=== PATIENT | female | born 1945 | race Hispanic/Latino ===

== ENCOUNTER 2016-08-23 06:13 | Emergency (ER) | payer MEDICARE ==
--- NOTE | 2016-08-23 07:59 | Emergency Department Report ---
HPI - General Chief Complaint: Extremity Injury, Lower Time Seen by Provider: 08/23/16 07:09 - HPI HPI: Chief complaint: Fall, right knee pain and low back pain HPI: Patient is 70-year-old female who was on her way to dialysis and tripped over her cane landing on her right knee. There was no syncope, no head injury and no other symptoms. Mode of arrival: EMS, Source: Patient Began: Prior to admission Duration: Pain continues Context: See above Quality: Sharp Severity: 8 out of 10 Improved with: Resting Worsened with: Walking and movement Associated signs and symptoms: No numbness or tingling or weakness ED Past Medical Hx - Past Medical History Hx Hypertension: Yes Hx Diabetes: Yes (controlled by diet per pt.) Hx GERD: Yes Hx Renal Disease: Yes Hx Arthritis: Yes Hx Seizures: Yes (last one on , on keppra, tonic clonic and complex partial) Hx COPD: Yes Hx Dementia: Yes Additional medical history: Paroxysmal atrial fibrillation - Surgical History Additional Surgical History: Unable to obtain, left upper extremity AV shunt, right chest permacath - Social History Smoking Status: Former Smoker Substance Use Type: None - Medications Home Medications: Home Medications Medication Instructions Recorded Confirmed Last Taken Type Aspirin [Aspirin BABY CHEW TAB] 81 mg PO QDAY 12/24/15 02/15/16 02/15/16 History AtorvaSTATin [Lipitor] 40 mg PO DAILY 12/24/15 02/18/16 02/17/16 History Carvedilol [Coreg] 25 mg PO BID 12/24/15 02/18/16 02/18/16 06:30 History Furosemide [Lasix TAB] 80 mg PO QDAY 12/24/15 02/18/16 02/17/16 History Pantoprazole Sodium 40 mg PO BID 12/24/15 02/18/16 02/17/16 History Paroxetine HCl [PARoxetine] 20 mg PO BID 12/24/15 02/18/16 02/17/16 History Vit B Cmplx 3/FA/Vit C/Biotin 1 each PO DAILY 12/24/15 02/18/16 02/17/16 History [[facility] Rx Tablet] levETIRAcetam [Keppra TAB] 1,500 mg PO BID 30 Days 12/26/15 02/18/16 02/18/16 06 :30 Rx Latanoprost 0.005% [Xalatan 0.005%] 1 drop OP QPM 02/15/16 02/18/16 02/17/16 History Levothyroxine [Synthroid] 88 mcg PO QAM 02/15/16 02/18/16 02/18/16 History Nitrofurantoin Macrocrystal 100 mg PO DAILY 02/15/16 02/15/16 Unknown History [Nitrofurantoin] Timolol [Betimol] 1 drop OU BID 02/15/16 02/18/16 02/18/16 History oxyCODONE /ACETAMINOPHEN [Percocet 1 tab PO Q6HR PRN 02/15/16 02/18/16 Unknown History 5/325] traMADol [Ultram 50 MG tab] 50 mg PO Q6HR PRN #10 tablet 08/23/16 Unknown Rx ED Review of Systems ROS: Stated complaint: RT KNEE/BACK PAIN/FALL Other details as noted in HPI ROS Constitutional: No fever ENT: No uri symptoms Cardiovascular: No chest pain Respiratory: No sob or cough GI: No nausea vomiting or diarrhea : No dysuria frequency or urgency, Skin: No rash Neuro: Walks with a cane Psych: No depression Cameron/lymph: No edema Physical Exam - Physical Exam Vital Signs: Vital Signs 08/23/16 08/23/16 06:27 07:04 Temperature 97.4 F L Pulse Rate 56 L Respiratory 18 Rate Blood Pressure 177/46 O2 Sat by Pulse 98 98 Oximetry Physical Exam: GENERAL: The patient is a well-developed well-nourished . HEENT: Normocephalic. Atraumatic. Extraocular motions are intact. Patient has moist mucous membranes. NECK: Normal inspection CHEST/LUNGS:. There is no respiratory distress noted. HEART/CARDIOVASCULAR: Pulses intact ABDOMEN: Abdomen is soft, nontender. There is no abdominal distention. SKIN: There is no rash. There is no edema. There is no diaphoresis. NEURO: The patient is awake, alert, and oriented. The patient is cooperative. The patient has no focal neurologic deficits. The patient has normal speech. MUSCULOSKELETAL: There is mild prepatellar tenderness with no deformity. There is no limitation range of motion. Mild lower lumbar tenderness without point tenderness. ED Course Vital Signs 08/23/16 08/23/16 06:27 07:04 Temperature 97.4 F L Pulse Rate 56 L Respiratory 18 Rate Blood Pressure 177/46 O2 Sat by Pulse 98 98 Oximetry ED Medical Decision Making - Radiology Data interpreted by me: X-ray of right knee shows DJD and lumbar spine shows degenerative disc disease with no acute fracture. Critical care attestation.: If time is entered above; I have spent that time in minutes in the direct care of this critically ill patient, excluding procedure time. ED Disposition Clinical Impression: Contusion of right knee Qualifiers: Encounter type: initial encounter Qualified Code(s): S80.01XA - Contusion of right knee, initial encounter Low back pain Qualifiers: Chronicity: acute Back pain laterality: midline Sciatica presence: without sciatica Qualified Code(s): M54.5 - Low back pain Disposition: DISCHARGED TO HOME OR SELFCARE Is pt being admited?: No Does the pt Need Aspirin: No Condition: Stable Instructions: Knee Pain (ED), Low Back Strain (ED), Contusion in Adults (ED) Additional Instructions: Take Tylenol for pain. Prescriptions: traMADol [Ultram 50 MG tab] 50 mg PO Q6HR PRN #10 tablet PRN Reason: Pain Referrals: PRIMARY CARE, [Primary Care Provider] - 3-5 Days Time of Disposition: 08:07
--- NOTE | 2016-08-23 10:15 | XRay Report ---
RIGHT KNEE THREE VIEWS: 08/23/16 06:13:00 CLINICAL: Fall and right knee pain. FINDINGS: Mild osteopenia. No fracture or dislocation. Moderate osteoarthritis involving both medial and lateral joint spaces and the patellofemoral joint. There is disc space narrowing, meniscal calcification or ossification and osteophytes. No joint effusion.Soft tissues are normal except for calcifications in the femoral artery. IMPRESSION: No apparent traumatic injury. Osteoarthritis.
[2016-08-23 10:17] VITALS: BP 155/84
--- NOTE | 2016-08-23 10:17 | XRay Report ---
LUMBAR SPINE THREE VIEWS: 08/23/16 06:13:00 CLINICAL: Fall and back pain. FINDINGS: Levoscoliosis and moderate multilevel degenerative disc disease. No fracture or subluxation. The pedicles are intact. Extensive calcification of the aorta. IMPRESSION: Scoliosis and extensive degenerative change.
== END 2016-08-23 10:18 | disposition home or self-care (01) ==
LOC: ED 06:13
DX: S80.01XA Contusion of right knee, initial encounter (principal); M54.5 Low back pain; I48.0 Paroxysmal atrial fibrillation; I10 Essential (primary) hypertension; E11.9 Type 2 diabetes mellitus without complications; J44.9 Chronic obstructive pulmonary disease, unspecified; F03.90 Unspecified dementia, unspecified severity, without behavioral disturbance, psychotic disturbance, mood disturbance, and anxiety; M19.90 Unspecified osteoarthritis, unspecified site; Z79.82 Long term (current) use of aspirin; Z87.891 Personal history of nicotine dependence; W18.30XA Fall on same level, unspecified, initial encounter; Y93.89 Activity, other specified; Y99.9 Unspecified external cause status; Y92.89 Other specified places as the place of occurrence of the external cause
CPT/HCPCS: 72100

== ENCOUNTER 2017-04-03 09:39 | Observation (INO) | payer MEDICARE ==
[2017-04-03] MEDS ORDERED: DULCOLAX PR PRN (10:58)
[2017-04-03] MEDS ORDERED: TYLENOL PO PRN (10:58)
[2017-04-03] MEDS ORDERED: ZOFRAN IM PRN (10:59)
[2017-04-03] MEDS ORDERED: NACL 0.9% 500 ML 500 ML IV NR (11:00)
--- NOTE | 2017-04-03 13:25 | Consultation ---
History of Present Illness - Reason for Consult Consult date: 04/03/17 end stage renal disease Requesting physician: HARMAN CHAVEZ - History of Present Illness Mrs. Casillas is a 71-year-old female with past medical history significant for diabetes, hypertension and end-stage renal disease on maintenance hemodialysis was admitted with severe anemia. Patient was noted to have a drop in her hemoglobin down in the sevens. Patient denies any nausea vomiting or diarrhea. No hematemesis or melena. Patient states that she did have a colonoscopy done about a year ago. Denies any other obvious bleeding. She undergoes hemodialysis at [facility] under our care on Tuesdays, and Saturdays. She did have her dialysis yesterday Past History Past Medical History: diabetes, dialysis, heart failure, hypertension Past Surgical History: Other (history of creation of AV access) Social history: no significant social history Family history: no significant family history Medications and Allergies Allergies Allergy/AdvReac Type Severity Reaction Status Date / Time benazepril HCl [From Lotrel] Allergy Swelling Verified 02/18/16 09:16 diphenhydramine HCl Allergy Swelling Verified 08/11/14 20:39 [From Benadryl] latex AdvReac Swelling Verified 02/18/16 09:15 Home Medications Medication Instructions Recorded Confirmed Last Taken Type Aspirin [Aspirin BABY CHEW TAB] 81 mg PO QDAY 12/24/15 03/03/17 02/15/16 History AtorvaSTATin [Lipitor] 40 mg PO DAILY 12/24/15 03/03/17 02/17/16 History Carvedilol [Coreg] 25 mg PO BID 12/24/15 03/03/17 02/18/16 06:30 History Furosemide [Lasix TAB] 40 mg PO QDAY 12/24/15 03/03/17 02/17/16 History Paroxetine HCl [PARoxetine] 20 mg PO BID 12/24/15 03/03/17 02/17/16 History Vit B Cmplx 3/FA/Vit C/Biotin 1 each PO DAILY 12/24/15 03/03/17 02/17/16 History [Chantell-Yana Rx Tablet] levETIRAcetam [Keppra TAB] 1,500 mg PO BID 30 Days 12/26/15 03/03/17 02/18/16 06 :30 Rx Latanoprost 0.005% [Xalatan 0.005%] 1 drop OP QPM 02/15/16 03/03/17 02/17/16 History Levothyroxine [Synthroid] 88 mcg PO QAM 02/15/16 03/03/17 02/18/16 History Timolol [Betimol] 1 drop OU BID 02/15/16 03/03/17 02/18/16 History Folic Acid/Vit B Comp W-C [Renal 1 cap PO QDAY capsule 03/04/17 Unknown Rx Caps] Furosemide [Lasix TAB] 40 mg PO DAILY tablet 03/04/17 Unknown Rx levETIRAcetam [Keppra TAB] 1,500 mg PO BID tablet 03/04/17 Unknown Rx oxyCODONE /ACETAMINOPHEN [Percocet 1 tab PO Q6HR PRN #14 tablet 03/04/17 Unknown Rx 5/325 mg] Active Meds: Active Medications Acetaminophen (Tylenol) 650 mg PO Q4H PRN PRN Reason: Pain MILD(1-3)/Fever >100.5/ARIAS Bisacodyl (Dulcolax) 10 mg [place] QDAY PRN PRN Reason: Constipation unrelieved by MOM Heparin Sodium (Porcine) (Heparin) 5,000 unit SUB-Q Q8HR MARIA G Sodium Chloride (Nacl 0.9% 500 Ml) 500 mls @ 0 mls/hr IV ONCE NR PRN Reason: As Directed Stop: 04/03/17 23:59 Ondansetron HCl (Zofran) 4 mg IM Q4H PRN PRN Reason: Nausea And Vomiting Review of Systems All systems: negative (negative except as noted above) Exam - General Appearance General appearance: well-developed, well-nourished, appears stated age EENT: PERRL, mucous membranes moist Neck: Present: neck supple, trachea midline. Absent: JVD/HJR, Masses Respiratory: Clear to Ascultation Heart: regular, normal heart rate Gastrointestinal: Present: normal, normoactive bowel sounds Integumentary: no rash, other (AV graft in her left upper arm. Good bruit and thrill) Assessment and Plan Impression * End-stage renal disease on maintenance hemodialysis * Severe anemia * Hypertension * Diabetes * Hyperparathyroidism Recommendations * Shall do anemia workup and also check stool for occult blood * Packed RBC transfusion may be given with dialysis tomorrow * Shall schedule her for dialysis tomorrow and keep her on Tuesdays, and Saturdays schedule as outpatient * Adjust diet and meds for ESRD state * No IV, BP of any puncture in her access arm * Binders and diet * Thank you very much for the consultation. Shall follow along with you
[2017-04-03] MEDS ORDERED: NACL 0.9% 100 ML IV PRN (13:26)
--- NOTE | 2017-04-03 13:29 | History and Physical Report ---
History of Present Illness Date of examination: 04/03/17 Date of admission: 04/03/17 10:15 Chief complaint: low H&H required transfusion History of present illness: 71-year-old female with a history of end-stage renal disease, right internal carotid artery stenosis, dementia, depression, dyslipidemia, COPD, hypothyroidism, glaucoma, osteoarthritis, diet-controlled diabetes mellitus type 2, end-stage renal disease on hemodialysis, hypertension, GERD, thrombocytopenia, paroxysmal atrial fibrillation not on anticoagulation because unexplained anemia with multiple colonoscopies and transfusions. Patient went to dialysis center and was told her hemoglobin is low and Dr. Dawn instructed her to come to [facility] for PRBC transfusion. Patient denies chest pain, shortness of breath, lightheadedness, dizziness, active bleeding. Past History Past Medical History: diabetes, dialysis, heart failure, hypertension Past Surgical History: Other (history of creation of AV access) Social history: no significant social history Family history: no significant family history Medications and Allergies Allergies Allergy/AdvReac Type Severity Reaction Status Date / Time benazepril HCl [From Lotrel] Allergy Swelling Verified 02/18/16 09:16 diphenhydramine HCl Allergy Swelling Verified 08/11/14 20:39 [From Benadryl] latex AdvReac Swelling Verified 02/18/16 09:15 Home Medications Medication Instructions Recorded Confirmed Last Taken Type Aspirin [Aspirin BABY CHEW TAB] 81 mg PO QDAY 12/24/15 04/03/17 04/03/17 05:30 History AtorvaSTATin [Lipitor] 40 mg PO DAILY 12/24/15 04/03/17 04/02/17 21:00 History Carvedilol [Coreg] 25 mg PO BID 12/24/15 04/03/17 04/03/17 05:30 History Furosemide [Lasix TAB] 40 mg PO QDAY 12/24/15 04/03/17 04/03/17 05:30 History Paroxetine HCl [PARoxetine] 20 mg PO BID 12/24/15 04/03/17 04/03/17 05:30 History Vit B Cmplx 3/FA/Vit C/Biotin 1 each PO DAILY 12/24/15 04/03/17 04/03/17 05:30 History [Ch[facility]ell-Yana Rx Tablet] levETIRAcetam [Keppra TAB] 1,500 mg PO BID 30 Days 12/26/15 04/03/17 04/03/17 05 :30 Rx Latanoprost 0.005% [Xalatan 0.005%] 1 drop OP QPM 02/15/16 04/03/17 04/02/17 21: 00 History Levothyroxine [Synthroid] 88 mcg PO QAM 02/15/16 04/03/17 04/03/17 04:05 History Timolol [Betimol] 1 drop OU BID 02/15/16 04/03/17 04/03/17 05:30 History Folic Acid/Vit B Comp W-C [Renal 1 cap PO QDAY capsule 03/04/17 04/03/17 05:30 Rx Caps] Furosemide [Lasix TAB] 40 mg PO DAILY tablet 03/04/17 04/03/17 04/03/17 05:30 Rx levETIRAcetam [Keppra TAB] 1,500 mg PO BID tablet 03/04/17 04/03/17 04/03/17 05 :30 Rx oxyCODONE /ACETAMINOPHEN [Percocet 1 tab PO Q6HR PRN #14 tablet 03/04/17 Unknown Rx 5/325 mg] Active Meds: Active Medications Acetaminophen (Tylenol) 650 mg PO Q4H PRN PRN Reason: Pain MILD(1-3)/Fever >100.5/ARIAS Bisacodyl (Dulcolax) 10 mg [place] QDAY PRN PRN Reason: Constipation unrelieved by MOM Epoetin Lyndon (Epogen) 20,000 unit IV SHIRAZ PRN PRN Reason: hemodialysis Heparin Sodium (Porcine) (Heparin) 5,000 unit SUB-Q Q8HR MARIA G Sodium Chloride (Nacl 0.9% 500 Ml) 500 mls @ 0 mls/hr IV ONCE NR PRN Reason: As Directed Stop: 04/03/17 23:59 Sodium Chloride (Nacl 0.9%) 100 mls @ 999 mls/hr IV SHIRAZ PRN PRN Reason: Hypotension Ondansetron HCl (Zofran) 4 mg IM Q4H PRN PRN Reason: Nausea And Vomiting Review of Systems Constitutional: no weight loss, no weight gain, no fever, no chills Ears, nose, mouth and throat: no ear discharge, no tinnitis, no decreased hearing, no nose pain, no nasal congestion, no nasal discharge Breasts: no change in shape, no swelling Cardiovascular: no chest pain, no orthopnea, no palpitations, no rapid/ irregular heart beat, no lightheadedness, no shortness of breath, no dyspnea on exertion Respiratory: no cough with sputum, no excessive sputum, no hemoptysis, no shortness of breath Gastrointestinal: no nausea, no vomiting, no diarrhea Genitourinary Female: no dysmenorrhea, no pelvic pain, no flank pain, no urinary frequency, no urgency, no post void dribbling Menstruation: no currently menstrual Musculoskeletal: no neck pain, no arm numbness/tingling, no shooting leg pain Integumentary: no pruritis, no redness, no wounds, no jaundice Neurological: no transient paralysis, no paralysis, no parathesias, no numbness , no tingling Psychiatric: no change in sleep habits, no sleep disturbances, no insomnia, no hypersomnia Endocrine: no heat intolerance, no polyphagia, no excessive thirst Hematologic/Lymphatic: no easy bruising, no easy bleeding Allergic/Immunologic: no urticaria, no allergic rhinitis, no wheezing Exam - Constitutional General appearance: Present: no acute distress - EENT Eyes: Present: PERRL ENT: hearing intact - Neck Neck: Present: supple - Respiratory Respiratory effort: normal Respiratory: bilateral: CTA - Cardiovascular Rhythm: regular Heart Sounds: Present: S1 & S2 - Extremities Extremities: no ischemia Peripheral Pulses: within normal limits - Abdominal General gastrointestinal: Present: soft, non-tender Female genitourinary: Present: deferred - Rectal Rectal Exam: deferred - Integumentary Integumentary: Present: clear, warm, dry - Musculoskeletal Musculoskeletal: strength equal bilaterally - Psychiatric Psychiatric: appropriate mood/affect - Neurologic Neurologic: CNII-XII intact - Allied Health Allied health notes reviewed: nursing Assessment and Plan Assessment and plan: 71-year-old female with a history of end-stage renal disease, right internal carotid artery stenosis, dementia, depression, dyslipidemia, COPD, hypothyroidism, glaucoma, osteoarthritis, diet-controlled diabetes mellitus type 2, end-stage renal disease on hemodialysis, hypertension, GERD, thrombocytopenia, paroxysmal atrial fibrillation not on anticoagulation because unexplained anemia with multiple colonoscopies and transfusions. Patient went to dialysis center and was told her hemoglobin is low and Dr. Dawn instructed her to come to [facility] for PRBC transfusion. Patient denies chest pain, shortness of breath, lightheadedness, dizziness, active bleeding. Chronic Anemia requiring transfusion Type and screen Transfuse 1 unit PRBC Close monitor H&H Stool occult blood pending Diabetes mellitus Accu-Chek before meals and after Sliding-scale insulin/NovoLog Diabetic education End stage renal disease on dialysis On hemodialysis Hypertension Continue on home antihypertensive medication IV hydralazine for SBP >160 Closely monitor blood pressure HX Paroxysmal atrial fibrillation Continue current treatment , rate controlled. Seizure disorder resume home anticonvulsant medication Dyslipidemia, Resume home antilipid medications Hypothyroidism Resume Synthroid DVT prophylaxis heparin Advance Directives: Yes VTE prophylaxis?: Chemical Contraindication Mechanical VTE Prophylaxis: Treatment Not Indicated Plan of care discussed with patient/family: Yes
[2017-04-03 13:55] LABS: Hematocrit 26.5 % (30.3-42.9); Hemoglobin 8.2 gm/dl (10.1-14.3); Mean Corpuscular HGB Conc 31 % (30-34); Mean Corpuscular Hemoglobin 32 pg (28-32); Mean Corpuscular Volume 104 fl (79-97); Red Blood Count 2.55 M/mm3 (3.65-5.03); Red Cell Distribution Width 17.5 % (13.2-15.2)
[2017-04-03 13:56] LABS: Reticulocyte % 2.74 % (0.78-2.58)
[2017-04-03] MEDS ORDERED: D50W (25GM) Syringe IV PRN (13:56)
[2017-04-03 14:01] LABS: Platelet Count 72 K/mm3 (140-440)
[2017-04-03 14:02] LABS: BUN/Creatinine Ratio 8.29; Calcium 8.5 mg/dL (8.4-10.2); Chloride 104.1 mmol/L (98-107); Potassium 4.5 mmol/L (3.6-5.0)
[2017-04-03] MEDS: HEPARIN SUB-Q SCH ×2 (14:22→21:31)
[2017-04-03 14:46] LABS: Blastocytes % (Manual) 0 %; Eosinophils % (Manual) 0 % (0.0-4.3)
[2017-04-03 14:47] LABS: Anisocytosis 2+; Diff Status Complete; Ovalocytes Few; Platelet Estimate Consistent w Auto
[2017-04-03] MEDS: XALATAN 0.005% OD SCH (19:00)
[2017-04-03] MEDS: NOVOLOG SUB-Q SCH ×2 (19:00→21:33)
[2017-04-03] MEDS: COREG PO SCH (21:31)
[2017-04-03] MEDS: KEPPRA PO SCH (21:32)
[2017-04-03] MEDS: PAXIL PO SCH (21:33)
[2017-04-03] MEDS: PERCOCET 5/325 PO PRN (21:38)
[2017-04-03] MEDS ORDERED: NON-FORMULARY (Levetiracetam [Keppra Tab] 1,500 MG) PO SCH (22:00)
[2017-04-03] MEDS ORDERED: TIMOLOL OU SCH (22:00)
[2017-04-04 04:28] LABS: Hematocrit 29.6 % (30.3-42.9); Hemoglobin 9.3 gm/dl (10.1-14.3); Mean Corpuscular HGB Conc 31 % (30-34); Mean Corpuscular Hemoglobin 32 pg (28-32); Mean Corpuscular Volume 103 fl (79-97); Red Blood Count 2.89 M/mm3 (3.65-5.03); Red Cell Distribution Width 18.8 % (13.2-15.2); White Blood Count 7.2 K/mm3 (4.5-11.0)
[2017-04-04 04:31] LABS: Platelet Count 82 K/mm3 (140-440)
[2017-04-04 05:25] LABS: Basophils % (Manual) 0 % (0.0-1.8); Blastocytes % (Manual) 0 %; Eosinophils % (Manual) 0 % (0.0-4.3)
[2017-04-04 05:26] LABS: Anisocytosis 1+; Diff Status Complete; Platelet Estimate Consistent w Auto; Polychromasia Rare
[2017-04-04] MEDS: LASIX PO SCH (06:07)
[2017-04-04] MEDS: SYNTHROID PO SCH (06:07)
[2017-04-04] MEDS: HEPARIN SUB-Q SCH ×3 (06:09→22:02)
[2017-04-04] MEDS: NOVOLOG SUB-Q SCH ×4 (08:00→22:02)
[2017-04-04] MEDS: PAXIL PO SCH ×2 (09:35→22:01)
[2017-04-04] MEDS: BABY ASPIRIN PO SCH (09:35)
[2017-04-04] MEDS: KEPPRA PO SCH ×2 (09:35→22:01)
[2017-04-04] MEDS: Renal Caps PO SCH (09:35)
[2017-04-04] MEDS: COREG PO SCH ×2 (09:36→22:01)
[2017-04-04] MEDS ORDERED: FUROSEMIDE 40 MG PO SCH (10:00)
[2017-04-04] MEDS ORDERED: [UNRECOGNIZED DRUG - OTHER] PO SCH (10:00)
[2017-04-04] MEDS ORDERED: BIOTIN PO SCH (10:00)
[2017-04-04] MEDS ORDERED: Renal Caps PO SCH (10:00)
[2017-04-04] MEDS ORDERED: VIT B CMPLX PO SCH (10:00)
--- NOTE | 2017-04-04 11:58 | Progress Note ---
Assessment and Plan Impression * End-stage renal disease on maintenance hemodialysis * Severe anemia * Hypertension * Diabetes * Hyperparathyroidism Recommendations * Status post packed RBC transfusion. Her hemoglobin is much better this morning. * No evidence of overt blood loss. * Patient is scheduled for hemodialysis today * Shall keep her on Tuesdays, and Saturdays schedule as outpatient * Adjust diet and meds for ESRD state * No IV, BP of any puncture in her access arm * Binders and diet * Patient will also need a GI follow-up * No objection to discharge from renal standpoint after dialysis Subjective Date of service: 04/04/17 Interval history: Patient is comfortable this morning. At packed RBC transfusion yesterday. Denies any hematemesis or melena or hematochezia. No nausea or vomiting. No shortness of breath Objective - Vital Signs Vital signs: Vital Signs - 12hr 04/04/17 04/04/17 06:05 09:36 Pulse Rate 73 65 Blood Pressure 151/59 Blood Pressure 161/63 [Right] - General Appearance General appearance: well-developed, well-nourished, appears stated age EENT: PERRL, mucous membranes moist Neck: no JVD, no thyromegaly, no carotid bruit, supple Respiratory: Present: Clear to Ascultation Cardiology: regular, normal heart rate, S1S2, no murmurs Gastrointestinal: normal, normoactive bowel sounds Integumentary: no rash, other (no edema. AV graft in the left upper arm. Good bruit and thrill) - Lab 04/04/17 03:41 04/03/17 13:31 Most recent lab results Calcium 8.5 mg/dL (8.4-10.2) 04/03/17 13:31
--- NOTE | 2017-04-04 13:44 | Progress Note ---
Assessment and Plan Assessment and plan: 71-year-old female with a history of end-stage renal disease, right internal carotid artery stenosis, dementia, depression, dyslipidemia, COPD, hypothyroidism, glaucoma, osteoarthritis, diet-controlled diabetes mellitus type 2, end-stage renal disease on hemodialysis, hypertension, GERD, thrombocytopenia, paroxysmal atrial fibrillation not on anticoagulation because unexplained anemia with multiple colonoscopies and transfusions. Patient went to dialysis center and was told her hemoglobin is low and Dr. Dawn instructed her to come to [facility] for PRBC transfusion. Patient denies chest pain, shortness of breath, lightheadedness, dizziness, active bleeding. Chronic Anemia requiring transfusion Type and screen Transfused 1 unit PRBC With good response Hx of multiple colonoscopy-Not sure if Capsule endoscopy has been done If AM h/h is stable will discharge and have follow up with GI outpatient. Outpatient capsule endoscopy Close monitor H&H Stool occult blood + Hemodynamically stable Diabetes mellitus Accu-Chek before meals and after Sliding-scale insulin/NovoLog Diabetic education End stage renal disease on dialysis On hemodialysis Hypertension Continue on home antihypertensive medication IV hydralazine for SBP >160 Closely monitor blood pressure Paroxysmal atrial fibrillation Continue current treatment, rate controlled. Seizure disorder resume home anticonvulsant medication Dyslipidemia, Resume home antilipid medications Hypothyroidism Resume Synthroid DVT prophylaxis heparin History Interval history: patient seen and examined in no acute distress Hospitalist Physical - Physical exam Narrative exam: VITAL SIGNS: Reviewed. GENERAL: The patient appeared well nourished and normally developed. Vital signs as documented. HEAD: No signs of head trauma. EYES: Pupils are equal. Extraocular motions intact. EARS: Hearing grossly intact. MOUTH: Oropharynx is normal. NECK: No adenopathy, no JVD. CHEST: Chest with clear breath sounds bilaterally. No wheezes, rales, or rhonchi. CARDIAC: Regular rate and rhythm. S1 and S2, without murmurs, gallops, or rubs. VASCULAR: No Edema. Peripheral pulses normal and equal in all extremities. ABDOMEN: Soft, without detectable tenderness. No sign of distention. No rebound or guarding, and no masses palpated. Bowel Sounds normal. MUSCULOSKELETAL: Good range of motion of all major joints. Extremities without clubbing, cyanosis or edema. NEUROLOGIC EXAM: Alert and oriented x 3. No focal sensory or strength deficits. Speech normal. Follows commands. PSYCHIATRIC: Mood normal. SKIN: No rash or lesions. - Constitutional Vitals: Temp Pulse Resp BP Pulse Ox 98.4 F 61 18 127/56 100 04/04/17 12:45 04/04/17 13:30 04/04/17 12:45 04/04/17 13:30 04/04/17 10:00 General appearance: Present: no acute distress, well-nourished - EENT Eyes: Present: PERRL Results - Labs CBC & Chem 7: 04/05/17 04:15 04/05/17 04:15 Labs: Laboratory Last Values WBC 7.2 K/mm3 (4.5-11.0) 04/04/17 03:41 RBC 2.89 M/mm3 (3.65-5.03) L 04/04/17 03:41 Hgb 9.3 gm/dl (10.1-14.3) L 04/04/17 03:41 Hct 29.6 % (30.3-42.9) L 04/04/17 03:41 MCV 103 fl (79-97) H 04/04/17 03:41 MCH 32 pg (28-32) 04/04/17 03:41 MCHC 31 % (30-34) 04/04/17 03:41 RDW 18.8 % (13.2-15.2) H 04/04/17 03:41 Plt Count 82 K/mm3 (140-440) L 04/04/17 03:41 [place] % (Auto) Skin Piler 04/04/17 03:41 Add Manual Diff Complete 04/04/17 03:41 Total Counted 100 04/04/17 03:41 Seg Neuts % (Manual) 69.0 % (40.0-70.0) 04/04/17 03:41 Band Neutrophils % 7.0 % 04/04/17 03:41 Lymphocytes % (Manual) 6.0 % (13.4-35.0) L 04/04/17 03:41 Reactive Lymphs % (Man) 0 % 04/04/17 03:41 Monocytes % (Manual) 18.0 % (0.0-7.3) H 04/04/17 03:41 Eosinophils % (Manual) 0 % (0.0-4.3) 04/04/17 03:41 Basophils % (Manual) 0 % (0.0-1.8) 04/04/17 03:41 Metamyelocytes % 0 % 04/04/17 03:41 Myelocytes % 0 % 04/04/17 03:41 Promyelocytes % 0 % 04/04/17 03:41 Blast Cells % 0 % 04/04/17 03:41 Nucleated RBC % Not Reportable 04/04/17 03:41 Seg Neutrophils # Man 5.0 K/mm3 (1.8-7.7) 04/04/17 03:41 Band Neutrophils # 0.5 K/mm3 04/04/17 03:41 Lymphocytes # (Manual) 0.4 K/mm3 (1.2-5.4) L 04/04/17 03:41 Abs React Lymphs (Man) 0.0 K/mm3 04/04/17 03:41 Monocytes # (Manual) 1.3 K/mm3 (0.0-0.8) H 04/04/17 03:41 Eosinophils # (Manual) 0.0 K/mm3 (0.0-0.4) 04/04/17 03:41 Basophils # (Manual) 0.0 K/mm3 (0.0-0.1) 04/04/17 03:41 Metamyelocytes # 0.0 K/mm3 04/04/17 03:41 Myelocytes # 0.0 K/mm3 04/04/17 03:41 Promyelocytes # 0.0 K/mm3 04/04/17 03:41 Blast Cells # 0.0 K/mm3 04/04/17 03:41 WBC Morphology Not Reportable 04/04/17 03:41 Hypersegmented Neuts Not Reportable 04/04/17 03:41 Hyposegmented Neuts Not Reportable 04/04/17 03:41 Hypogranular Neuts Not Reportable 04/04/17 03:41 Smudge Cells Not Reportable 04/04/17 03:41 Toxic Granulation Not Reportable 04/04/17 03:41 Toxic Vacuolation Not Reportable 04/04/17 03:41 Dohle Bodies Not Reportable 04/04/17 03:41 Pelger-Huet Anomaly Not Reportable 04/04/17 03:41 Juanpablo Rods Not Reportable 04/04/17 03:41 Platelet Estimate Consistent w auto 04/04/17 03:41 Clumped Platelets Not Reportable 04/04/17 03:41 Plt Clumps, EDTA Not Reportable 04/04/17 03:41 Large Platelets Not Reportable 04/04/17 03:41 Giant Platelets Not Reportable 04/04/17 03:41 Platelet Satelliting Not Reportable 04/04/17 03:41 Plt Morphology Comment Not Reportable 04/04/17 03:41 RBC Morphology Not Reportable 04/04/17 03:41 Dimorphic RBCs Not Reportable 04/04/17 03:41 Polychromasia Rare 04/04/17 03:41 Hypochromasia Not Reportable 04/04/17 03:41 Poikilocytosis Not Reportable 04/04/17 03:41 Anisocytosis 1+ 04/04/17 03:41 Microcytosis Not Reportable 04/04/17 03:41 Macrocytosis Not Reportable 04/04/17 03:41 Spherocytes Not Reportable 04/04/17 03:41 Pappenheimer Bodies Not Reportable 04/04/17 03:41 Sickle Cells Not Reportable 04/04/17 03:41 Target Cells Not Reportable 04/04/17 03:41 Tear Drop Cells Not Reportable 04/04/17 03:41 Ovalocytes Not Reportable 04/04/17 03:41 Helmet Cells Not Reportable 04/04/17 03:41 [place] Bodies Not Reportable 04/04/17 03:41 [place] Rings Not Reportable 04/04/17 03:41 [place] Cells Not Reportable 04/04/17 03:41 Bite Cells Not Reportable 04/04/17 03:41 Crenated Cell Not Reportable 04/04/17 03:41 Elliptocytes Not Reportable 04/04/17 03:41 Acanthocytes (Spur) Not Reportable 04/04/17 03:41 Rouleaux Not Reportable 04/04/17 03:41 Hemoglobin C Crystals Not Reportable 04/04/17 03:41 Schistocytes Not Reportable 04/04/17 03:41 Malaria parasites Not Reportable 04/04/17 03:41 Percent Retic 2.74 % (0.78-2.58) H 04/03/17 13:31 Chad Bodies Not Reportable 04/04/17 03:41 Hem Pathologist Commnt No 04/04/17 03:41 Sodium 147 mmol/L (137-145) H 04/03/17 13:31 Potassium 4.5 mmol/L (3.6-5.0) 04/03/17 13:31 Chloride 104.1 mmol/L (98-107) 04/03/17 13:31 Carbon Dioxide 25 mmol/L (22-30) 04/03/17 13:31 Anion Gap 22 mmol/L 04/03/17 13:31 BUN 39 mg/dL (7-17) H 04/03/17 13:31 Creatinine 4.7 mg/dL (0.7-1.2) H 04/03/17 13:31 Estimated GFR 9 ml/min 04/03/17 13:31 BUN/Creatinine Ratio 8.29 % 04/03/17 13:31 Glucose 117 mg/dL (65-100) H 04/03/17 13:31 POC Glucose 132 (70-105) H 04/04/17 11:45 Calcium 8.5 mg/dL (8.4-10.2) 04/03/17 13:31 Blood Type O POSITIVE 04/03/17 13:25 Antibody Screen Positive 04/03/17 13:25 Antibody Identification Anti-E 04/03/17 13:25 Crossmatch See Detail 04/03/17 13:25
[2017-04-04] MEDS ORDERED: NACL 0.9 (PRIMING MACHINE ONLY DIALYSIS) MC ONE (13:53)
[2017-04-04] MEDS: XALATAN 0.005% OD SCH (19:00)
[2017-04-05 05:00] LABS: Hemoglobin 8.5 gm/dl (10.1-14.3); Mean Corpuscular HGB Conc 31 % (30-34); Mean Corpuscular Hemoglobin 32 pg (28-32); Mean Corpuscular Volume 102 fl (79-97); Red Blood Count 2.65 M/mm3 (3.65-5.03); Red Cell Distribution Width 17.8 % (13.2-15.2); White Blood Count 5.9 K/mm3 (4.5-11.0)
[2017-04-05 05:05] LABS: Platelet Count 64 K/mm3 (140-440)
[2017-04-05 05:08] LABS: BUN/Creatinine Ratio 6.94; Calcium 7.9 mg/dL (8.4-10.2); Potassium 3.8 mmol/L (3.6-5.0)
[2017-04-05] MEDS: HEPARIN SUB-Q SCH ×3 (06:06→21:38)
[2017-04-05] MEDS: LASIX PO SCH (06:06)
[2017-04-05] MEDS: SYNTHROID PO SCH (06:06)
[2017-04-05] MEDS: NOVOLOG SUB-Q SCH ×4 (08:00→22:24)
[2017-04-05] MEDS: PERCOCET 5/325 PO PRN ×2 (09:10→20:35)
[2017-04-05] MEDS: Renal Caps PO SCH (09:11)
[2017-04-05] MEDS: PAXIL PO SCH ×2 (09:11→21:37)
[2017-04-05] MEDS: BABY ASPIRIN PO SCH (09:11)
[2017-04-05] MEDS: COREG PO SCH ×2 (09:12→21:37)
[2017-04-05] MEDS: KEPPRA PO SCH ×2 (10:04→21:37)
--- NOTE | 2017-04-05 12:14 | Discharge Summary ---
Providers - Providers Date of Admission: 04/03/17 10:15 Attending physician: SAURABH MOE MD 04/03/17 10:16 Consult to Physician [CONS] Routine Consulting Provider: BETH DAWN Reason For Exam: CHRONIC KIDNEY DISEASE Place consult to:: DR. MILLAN Notified:: Phone number called:: [phone] Was contact made?: Yes If yes, spoke with:: PAPO Time called:: 12:13 Comment:: JONATHON Primary care physician: [facility] Hospitalization Reason for admission: anemia Hospital course: 71-year-old female with a history of end-stage renal disease, right internal carotid artery stenosis, dementia, depression, dyslipidemia, COPD, hypothyroidism, glaucoma, osteoarthritis, diet-controlled diabetes mellitus type 2, end-stage renal disease on hemodialysis, hypertension, GERD, thrombocytopenia, paroxysmal atrial fibrillation not on anticoagulation because unexplained anemia with multiple colonoscopies and transfusions. Patient went to dialysis center and was told her hemoglobin is low and Dr. Dawn instructed her to come to [facility] for PRBC transfusion. Patient denies chest pain, shortness of breath, lightheadedness, dizziness, active bleeding. Patient had an episode of afib with rvr which self corrected. EKG revealed Sinus rhthm with PAC at 69. 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 Acute on Chronic Anemia requiring transfusion Type and screen Transfused 1 unit PRBC With good response Hx of multiple colonoscopy-Not sure if Capsule endoscopy has been done Equalization of Hgb noted. Per nephrology Hgb was 7.7 prior to admission Outpatient capsule endoscopy Recommended Patient has had multiple endoscopies and colonoscopies. Hemodynamically stable Diabetes mellitus Accu-Chek before meals and after Sliding-scale insulin/NovoLog Diabetic education End stage renal disease on dialysis On hemodialysis Hypertension Continue on home antihypertensive medication IV hydralazine for SBP >160 Closely monitored blood pressure Paroxysmal atrial fibrillation Continue current treatment, rate controlled. Seizure disorder resume home anticonvulsant medication Dyslipidemia, Resume home antilipid medications Hypothyroidism Resumed Synthroid Disposition: TO HOME OR SELFCARE Time spent for discharge: 35 mins Core Measure Documentation - Palliative Care Palliative Care/ Comfort Measures: Not Applicable - Core Measures Any of the following diagnoses?: none - VTE Discharge Requirements Deep Vein Thrombosis/Pulmonary Embolism Present on Admission: No Exam - Physical Exam Narrative exam: VITAL SIGNS: Reviewed. GENERAL: The patient appeared well nourished and normally developed. Vital signs as documented. HEAD: No signs of head trauma. EYES: Pupils are equal. Extraocular motions intact. EARS: Hearing grossly intact. MOUTH: Oropharynx is normal. NECK: No adenopathy, no JVD. CHEST: Chest with clear breath sounds bilaterally. No wheezes, rales, or rhonchi. CARDIAC: Regular rate and rhythm. S1 and S2, without murmurs, gallops, or rubs. VASCULAR: No Edema. Peripheral pulses normal and equal in all extremities. ABDOMEN: Soft, without detectable tenderness. No sign of distention. No rebound or guarding, and no masses palpated. Bowel Sounds normal. MUSCULOSKELETAL: Good range of motion of all major joints. Extremities without clubbing, cyanosis or edema. NEUROLOGIC EXAM: Alert and oriented x 3. No focal sensory or strength deficits. Speech normal. Follows commands. PSYCHIATRIC: Mood normal. SKIN: No rash or lesions. - Constitutional Vitals: Temp Pulse Resp BP Pulse Ox 98.8 F 117 H 20 136/68 100 04/05/17 10:00 04/05/17 10:00 04/05/17 10:00 04/05/17 10:04/05/17 10:00 Plan Activity: advance as tolerated, fall precautions Diet: diabetic, renal Special Instructions: record daily BP diary Additional Instructions: follow cardiology for Atrial firbiallation Follow up with: KNACHAN OROSCO MD [Staff Physician] - 7 Days BETH DAWN MD [Staff Physician] - 7 Days MENA NEGRO MD [Primary Care Provider] - 7 Days STACEY SHORT MD [Staff Physician] - 7 Days
--- NOTE | 2017-04-05 12:25 | Progress Note ---
Assessment and Plan Impression * End-stage renal disease on maintenance hemodialysis * Severe anemia * Hypertension * Diabetes * Hyperparathyroidism Recommendations * Status post packed RBC transfusion. . * No evidence of overt blood loss. * Uneventful hemodialysis yesterday * Shall keep her on Tuesdays, and Saturdays schedule as outpatient * Adjust diet and meds for ESRD state * No IV, BP of any puncture in her access arm * Binders and diet * Her EKG today showed sinus rhythm with PACs * Patient has had GI workup in the past . Patient will also need a GI follow-up for capsule endoscopy as outpatient * No objection to discharge from renal standpoint after dialysis Subjective Date of service: 04/05/17 Interval history: Patient is awake and alert. Comfortable at this time. Denies any shortness of breath Objective - Vital Signs Vital signs: Vital Signs - 12hr 04/05/17 04/05/17 04/05/17 09:05 09:12 10:00 Temperature 98.8 F Pulse Rate 100 H 117 H Respiratory 20 Rate Blood Pressure 138/68 Blood Pressure 136/68 [Right] O2 Sat by Pulse 100 100 Oximetry - General Appearance General appearance: well-developed, well-nourished, appears stated age EENT: PERRL, mucous membranes moist Neck: no JVD, no thyromegaly, no carotid bruit, supple Respiratory: Present: Clear to Ascultation Cardiology: irregularly irregular Gastrointestinal: normal, normoactive bowel sounds Integumentary: no rash, other (no edema. AV graft in her left arm. Good bruit and thrill) - Lab 04/05/17 04:15 04/05/17 04:15 Most recent lab results Calcium 7.9 mg/dL (8.4-10.2) L 04/05/17 04:15
--- NOTE | 2017-04-05 14:10 | Progress Note ---
Assessment and Plan Assessment and plan: 71-year-old female with a history of end-stage renal disease, right internal carotid artery stenosis, dementia, depression, dyslipidemia, COPD, hypothyroidism, glaucoma, osteoarthritis, diet-controlled diabetes mellitus type 2, end-stage renal disease on hemodialysis, hypertension, GERD, thrombocytopenia, paroxysmal atrial fibrillation not on anticoagulation because unexplained anemia with multiple colonoscopies and transfusions. Patient went to dialysis center and was told her hemoglobin is low and Dr. Dawn instructed her to come to [facility] for PRBC transfusion. Patient denies chest pain, shortness of breath, lightheadedness, dizziness, active bleeding. Hypoxic respiratory failure * We'll recheck a hemoglobin and hematocrit to ensure this is not based on demand * We'll obtain an ABG * We'll plan for home O2 * We'll hold patient up tomorrow to monitor for improvement. Chronic Anemia requiring transfusion Type and screen Transfused 1 unit PRBC With good response Hx of multiple colonoscopy-Not sure if Capsule endoscopy has been done If AM h/h is stable will discharge and have follow up with GI outpatient. Outpatient capsule endoscopy Close monitor H&H Stool occult blood + Hemodynamically stable Diabetes mellitus Accu-Chek before meals and after Sliding-scale insulin/NovoLog Diabetic education End stage renal disease on dialysis On hemodialysis Hypertension Continue on home antihypertensive medication IV hydralazine for SBP >160 Closely monitor blood pressure Paroxysmal atrial fibrillation Continue current treatment, rate controlled. Seizure disorder resume home anticonvulsant medication Dyslipidemia, Resume home antilipid medications Hypothyroidism Resume Synthroid DVT prophylaxis heparin History Interval history: Patient reexamined prior to discharge she reported shortness of breath which she states is chronic but this appeared worse than before. Oxygen evaluation showed a saturation of 88% on ambulation. Hospitalist Physical - Physical exam Narrative exam: VITAL SIGNS: Reviewed. GENERAL: The patient appeared well nourished and normally developed. Vital signs as documented. HEAD: No signs of head trauma. EYES: Pupils are equal. Extraocular motions intact. EARS: Hearing grossly intact. MOUTH: Oropharynx is normal. NECK: No adenopathy, no JVD. CHEST: Chest with clear breath sounds bilaterally. No wheezes, rales, or rhonchi. CARDIAC: Regular rate and rhythm. S1 and S2, without murmurs, gallops, or rubs. VASCULAR: No Edema. Peripheral pulses normal and equal in all extremities. ABDOMEN: Soft, without detectable tenderness. No sign of distention. No rebound or guarding, and no masses palpated. Bowel Sounds normal. MUSCULOSKELETAL: Good range of motion of all major joints. Extremities without clubbing, cyanosis or edema. NEUROLOGIC EXAM: Alert and oriented x 3. No focal sensory or strength deficits. Speech normal. Follows commands. PSYCHIATRIC: Mood normal. SKIN: No rash or lesions. - Constitutional Vitals: Temp Pulse Resp BP Pulse Ox 98.8 F 117 H 20 136/68 100 04/05/17 10:00 04/05/17 10:00 04/05/17 10:00 04/05/17 10:00 04/05/17 10:00 General appearance: Present: no acute distress, well-nourished Results - Labs CBC & Chem 7: 04/05/17 04:15 04/05/17 04:15 Labs: Laboratory Last Values WBC 5.9 K/mm3 (4.5-11.0) 04/05/17 04:15 RBC 2.65 M/mm3 (3.65-5.03) L 04/05/17 04:15 Hgb 8.5 gm/dl (10.1-14.3) L 04/05/17 04:15 Hct 27.0 % (30.3-42.9) L 04/05/17 04:15 MCV 102 fl (79-97) H 04/05/17 04:15 MCH 32 pg (28-32) 04/05/17 04:15 MCHC 31 % (30-34) 04/05/17 04:15 RDW 17.8 % (13.2-15.2) H 04/05/17 04:15 Plt Count 64 K/mm3 (140-440) L 04/05/17 04:15 [place] % (Auto) Firearms Sales Associate 04/04/17 03:41 Add Manual Diff Complete 04/04/17 03:41 Total Counted 100 04/04/17 03:41 Seg Neuts % (Manual) 69.0 % (40.0-70.0) 04/04/17 03:41 Band Neutrophils % 7.0 % 04/04/17 03:41 Lymphocytes % (Manual) 6.0 % (13.4-35.0) L 04/04/17 03:41 Reactive Lymphs % (Man) 0 % 04/04/17 03:41 Monocytes % (Manual) 18.0 % (0.0-7.3) H 04/04/17 03:41 Eosinophils % (Manual) 0 % (0.0-4.3) 04/04/17 03:41 Basophils % (Manual) 0 % (0.0-1.8) 04/04/17 03:41 Metamyelocytes % 0 % 04/04/17 03:41 Myelocytes % 0 % 04/04/17 03:41 Promyelocytes % 0 % 04/04/17 03:41 Blast Cells % 0 % 04/04/17 03:41 Nucleated RBC % Not Reportable 04/04/17 03:41 Seg Neutrophils # Man 5.0 K/mm3 (1.8-7.7) 04/04/17 03:41 Band Neutrophils # 0.5 K/mm3 04/04/17 03:41 Lymphocytes # (Manual) 0.4 K/mm3 (1.2-5.4) L 04/04/17 03:41 Abs React Lymphs (Man) 0.0 K/mm3 04/04/17 03:41 Monocytes # (Manual) 1.3 K/mm3 (0.0-0.8) H 04/04/17 03:41 Eosinophils # (Manual) 0.0 K/mm3 (0.0-0.4) 04/04/17 03:41 Basophils # (Manual) 0.0 K/mm3 (0.0-0.1) 04/04/17 03:41 Metamyelocytes # 0.0 K/mm3 04/04/17 03:41 Myelocytes # 0.0 K/mm3 04/04/17 03:41 Promyelocytes # 0.0 K/mm3 04/04/17 03:41 Blast Cells # 0.0 K/mm3 04/04/17 03:41 WBC Morphology Not Reportable 04/04/17 03:41 Hypersegmented Neuts Not Reportable 04/04/17 03:41 Hyposegmented Neuts Not Reportable 04/04/17 03:41 Hypogranular Neuts Not Reportable 04/04/17 03:41 Smudge Cells Not Reportable 04/04/17 03:41 Toxic Granulation Not Reportable 04/04/17 03:41 Toxic Vacuolation Not Reportable 04/04/17 03:41 Dohle Bodies Not Reportable 04/04/17 03:41 Pelger-Huet Anomaly Not Reportable 04/04/17 03:41 Juanpablo Rods Not Reportable 04/04/17 03:41 Platelet Estimate Consistent w auto 04/04/17 03:41 Clumped Platelets Not Reportable 04/04/17 03:41 Plt Clumps, EDTA Not Reportable 04/04/17 03:41 Large Platelets Not Reportable 04/04/17 03:41 Giant Platelets Not Reportable 04/04/17 03:41 Platelet Satelliting Not Reportable 04/04/17 03:41 Plt Morphology Comment Not Reportable 04/04/17 03:41 RBC Morphology Not Reportable 04/04/17 03:41 Dimorphic RBCs Not Reportable 04/04/17 03:41 Polychromasia Rare 04/04/17 03:41 Hypochromasia Not Reportable 04/04/17 03:41 Poikilocytosis Not Reportable 04/04/17 03:41 Anisocytosis 1+ 04/04/17 03:41 Microcytosis Not Reportable 04/04/17 03:41 Macrocytosis Not Reportable 04/04/17 03:41 Spherocytes Not Reportable 04/04/17 03:41 Pappenheimer Bodies Not Reportable 04/04/17 03:41 Sickle Cells Not Reportable 04/04/17 03:41 Target Cells Not Reportable 04/04/17 03:41 Tear Drop Cells Not Reportable 04/04/17 03:41 Ovalocytes Not Reportable 04/04/17 03:41 Helmet Cells Not Reportable 04/04/17 03:41 [place] Bodies Not Reportable 04/04/17 03:41 [place] Rings Not Reportable 04/04/17 03:41 [place] Cells Not Reportable 04/04/17 03:41 Bite Cells Not Reportable 04/04/17 03:41 Crenated Cell Not Reportable 04/04/17 03:41 Elliptocytes Not Reportable 04/04/17 03:41 Acanthocytes (Spur) Not Reportable 04/04/17 03:41 Rouleaux Not Reportable 04/04/17 03:41 Hemoglobin C Crystals Not Reportable 04/04/17 03:41 Schistocytes Not Reportable 04/04/17 03:41 Malaria parasites Not Reportable 04/04/17 03:41 Percent Retic 2.74 % (0.78-2.58) H 04/03/17 13:31 Chad Bodies Not Reportable 04/04/17 03:41 Hem Pathologist Commnt No 04/04/17 03:41 Sodium 143 mmol/L (137-145) 04/05/17 04:15 Potassium 3.8 mmol/L (3.6-5.0) 04/05/17 04:15 Chloride 101.0 mmol/L (98-107) 04/05/17 04:15 Carbon Dioxide 29 mmol/L (22-30) 04/05/17 04:15 Anion Gap 17 mmol/L 04/05/17 04:15 BUN 25 mg/dL (7-17) H 04/05/17 04:15 Creatinine 3.6 mg/dL (0.7-1.2) H 04/05/17 04:15 Estimated GFR 12 ml/min 04/05/17 04:15 BUN/Creatinine Ratio 6.94 % 04/05/17 04:15 Glucose 122 mg/dL (65-100) H 04/05/17 04:15 POC Glucose 176 (70-105) H 04/05/17 11:32 Calcium 7.9 mg/dL (8.4-10.2) L 04/05/17 04:15 Blood Type O POSITIVE 04/03/17 13:25 Antibody Screen Positive 04/03/17 13:25 Antibody Identification Anti-E 04/03/17 13:25 Crossmatch See Detail 04/03/17 13:25
[2017-04-05 15:19] LABS: ISTAT Base Excess 6; ISTAT PCO2 63.1 (35-45); ISTAT PH 7.313 (7.35-7.45); ISTAT PO2 171 (80-105); ISTAT SO2 99; ISTAT TCO2 34
[2017-04-05 17:01] LABS: Hematocrit 30.7 % (30.3-42.9); Hemoglobin 9.4 gm/dl (10.1-14.3)
[2017-04-05] MEDS: XALATAN 0.005% OD SCH (18:00)
--- NOTE | 2017-04-06 02:40 | Admit Criteria Form ---
Admission Criteria Documentation: ANEMIA, IRON DEFICIENCY OR UNSPECIFIED Clinical Indications for Inpatient Care (Place 'X' for any and all applicable criteria): Admission is indicated for ANY ONE of the following(1)(2)(3)(4)(5)(6)(7): [X] I. Inpatient admission required rather than observation care (Also use Anemia, Iron Deficiency or Unspecified: Observation Care guideline as appropriate) because of ANY ONE of the following: [] a) Hemodynamic instability that is severe or persistent [] b) Active bleeding that cannot be rapidly controlled [] c) CVS symptoms (i.e., dyspnea, chest pain, heart failure) that are severe or persistent [] d) Neurologic symptoms (i.e., cognitive impairment, recurrent syncope or near syncope) that are severe or persistent [] e) Cardiac arrhythmias of immediate concern [] f) Acute peripheral ischemia (e.g., pulseless, cool, mottled, or cyanotic extremity) [] g) High-risk low platelet count [] h) Acute renal failure [] i) Ongoing transfusion for blood loss (greater than 2 units) [] j) IV fluid to replace significant ongoing (eg, >24 hours) losses (> 3 L/m2 per day) [] k) Pulmonary artery catheter monitoring [] l) Supplemental oxygen or respiratory treatments for over 24 hours that are performable only in acute inpatient setting [] m) Immediate inpatient surgery [X] n) Other condition, treatment or monitoring requiring inpatient admission [] II Active massive hemorrhage [] III. Active hemolysis with rapidly progressive anemia [A](6) Extended stay beyond goal length of stay may be needed for (17)(18) []a) Diagnosed cause of anemia requiring longer hospitalization (eg, active GI bleeding, immune hemolysis requiring electrophoresis, complications of malignancy requiring acute care []b) Continued emergent anemia indicators (23) []c) Transfusion reactions []d) Associated leukopenia or thrombocytopenia needing inpatient care []e) Active comorbidities (eg, renal failure, heart failure) The original [facility] Care Guidelines content created by [facility] Care Guidelines has been revised. The portions of the content which have been revised are identified through the use of italic text or in bold. [facility] Guidelines has neither reviewed nor approved the modified material. All other unmodified content is copyright [facility] Care Guidelines. Please see references footnoted in the original [facility] edition 2016 Admission Criteria Met: Yes
[2017-04-06 05:05] LABS: Hematocrit 23.8 % (30.3-42.9); Hemoglobin 7.7 gm/dl (10.1-14.3); Mean Corpuscular HGB Conc 32 % (30-34); Mean Corpuscular Hemoglobin 32 pg (28-32); Mean Corpuscular Volume 100 fl (79-97); Red Blood Count 2.38 M/mm3 (3.65-5.03); Red Cell Distribution Width 16.9 % (13.2-15.2); White Blood Count 3.9 K/mm3 (4.5-11.0)
[2017-04-06 05:13] LABS: Platelet Count 57 K/mm3 (140-440)
[2017-04-06] MEDS: SYNTHROID PO SCH (05:57)
[2017-04-06] MEDS: LASIX PO SCH (05:59)
[2017-04-06] MEDS: HEPARIN SUB-Q SCH (05:59)
[2017-04-06] MEDS: NOVOLOG SUB-Q SCH ×3 (08:00→17:00)
[2017-04-06] MEDS ORDERED: NACL 0.9% 500 ML 500 ML IV ONE ×2 (08:30→10:59)
[2017-04-06] MEDS: APRESOLINE IV PRN ×2 (08:51→11:44)
--- NOTE | 2017-04-06 10:00 | Progress Note ---
Assessment and Plan Impression * End-stage renal disease on maintenance hemodialysis * Severe anemia * Hypertension * Diabetes * Hyperparathyroidism Recommendations * Status post packed RBC transfusion. . * No evidence of overt blood loss. * hd today for sob, will give 2 units prbcs * HD Tuesdays, and Saturdays schedule as outpatient as well * Adjust diet and meds for ESRD state * No IV, BP of any puncture in her access arm * Binders and diet * Her EKG today showed sinus rhythm with PACs * Patient has had GI workup in the past . Patient will also need a GI follow-up for capsule endoscopy as outpatient * ok to khurram from renal standpoint Subjective Date of service: 04/06/17 Principal diagnosis: esrd Interval history: resting well in bed today, but complains of sob Objective - Exam Narrative Exam: General appearance: well-developed, well-nourished, appears stated age EENT: PERRL, mucous membranes moist Neck: no JVD, no thyromegaly, no carotid bruit, supple Respiratory: Present: Clear to Ascultation Cardiology: irregularly irregular Gastrointestinal: normal, normoactive bowel sounds Integumentary: no rash, other (no edema. AV graft in her left arm. Good bruit and thrill) - Vital Signs Vital signs: Vital Signs - 12hr 04/05/17 04/06/17 22:00 08:51 Temperature 98.8 F Pulse Rate 86 82 Respiratory 18 Rate Blood Pressure 174/55 Blood Pressure 172/40 [Right] O2 Sat by Pulse 100 Oximetry - Lab 04/06/17 03:41 04/05/17 04:15 Most recent lab results Calcium 7.9 mg/dL (8.4-10.2) L 04/05/17 04:15
[2017-04-06] MEDS: COREG PO SCH ×2 (10:11→22:00)
[2017-04-06] MEDS ORDERED: NACL 0.9% 100 ML IV PRN (10:57)
[2017-04-06] MEDS: PAXIL PO SCH (11:00)
[2017-04-06] MEDS: KEPPRA PO SCH (11:00)
[2017-04-06] MEDS: PROTONIX PO SCH (11:00)
[2017-04-06] MEDS: Renal Caps PO SCH (11:00)
[2017-04-06] MEDS ORDERED: D5/0.45NS 1,000 ML IV SCH (12:00)
--- NOTE | 2017-04-06 12:15 | Gastroenterology Consultation ---
History of Present Illness - Reason for Consult Consult date: 04/06/17 anemia Requesting physician: SAURABH MOE - History of Present Illness Patient is a 71 y/o female who was sent to [facility] from dialysis center due to low hemoglobin. PMH significant for ESRD on HD, right internal carotid artery stenosis, dementia, depression, dyslipidemia, COPD, hypothyroidism, glaucoma, osteoarthritis, diet-controlled diabetes mellitus type 2, end-stage renal disease on hemodialysis, hypertension, GERD, thrombocytopenia, paroxysmal atrial fibrillation not on anticoagulation. 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 This morning pt in bed, respirations slightly labored due to recent transfer from the chair. Pt currently on O2 via NC. No active signs of bleeding. Denies fever , wt loss, abd pain, N/V, hematemesis, melena, diarrhea, constipation, or hematochezia. Past History Past Medical History: atrial fib, anemia, COPD, diabetes, dialysis, ESRD, GERD, heart failure, hypertension, hypothyroidism, other (dementia, coronary artery stenosis, dyslipidemia, glaucoma, osteoarthritis, thrombocytepenia ) Past Surgical History: Other (history of creation of AV access) Social history: no significant social history Family history: no significant family history Medications and Allergies Allergies Allergy/AdvReac Type Severity Reaction Status Date / Time benazepril HCl [From Lotrel] Allergy Swelling Verified 02/18/16 09:16 diphenhydramine HCl Allergy Swelling Verified 08/11/14 20:39 [From Benadryl] latex AdvReac Swelling Verified 02/18/16 09:15 Home Medications Medication Instructions Recorded Confirmed Last Taken Type Aspirin [Aspirin BABY CHEW TAB] 81 mg PO QDAY 12/24/15 04/03/17 04/03/17 05:30 History AtorvaSTATin [Lipitor] 40 mg PO DAILY 12/24/15 04/03/17 04/02/17 21:00 History Carvedilol [Coreg] 25 mg PO BID 12/24/15 04/03/17 04/03/17 05:30 History Paroxetine HCl [PARoxetine] 20 mg PO BID 12/24/15 04/03/17 04/03/17 05:30 History Vit B Cmplx 3/FA/Vit C/Biotin 1 each PO DAILY 12/24/15 04/03/17 04/03/17 05:30 History [Chantell-Yana Rx Tablet] levETIRAcetam [Keppra TAB] 1,500 mg PO BID 30 Days 12/26/15 04/03/17 04/03/17 05 :30 Rx Latanoprost 0.005% [Xalatan 0.005%] 1 drop OP QPM 02/15/16 04/03/17 04/02/17 21: 00 History Levothyroxine [Synthroid] 88 mcg PO QAM 02/15/16 04/03/17 04/03/17 04:05 History Timolol [Betimol] 1 drop OU BID 02/15/16 04/03/17 04/03/17 05:30 History Folic Acid/Vit B Comp W-C [Renal 1 cap PO QDAY capsule 03/04/17 04/03/17 05:30 Rx Caps] Furosemide [Lasix TAB] 40 mg PO DAILY tablet 03/04/17 04/03/17 04/03/17 05:30 Rx levETIRAcetam [Keppra TAB] 1,500 mg PO BID tablet 03/04/17 04/03/17 04/03/17 05 :30 Rx oxyCODONE /ACETAMINOPHEN [Percocet 1 tab PO Q6HR PRN #12 tablet 04/05/17 Unknown Rx 5/325 mg] Pantoprazole [Protonix TAB] 40 mg PO QDAY #30 tablet 04/06/17 Unknown Rx Active Meds: Active Medications Acetaminophen (Tylenol) 650 mg PO Q4H PRN PRN Reason: Pain MILD(1-3)/Fever >100.5/ARIAS Atorvastatin Calcium (Lipitor) 40 mg PO QHS [facility] Last Admin: 04/05/17 21:37 Dose: 40 mg Bisacodyl (Dulcolax) 10 mg MT QDAY PRN PRN Reason: Constipation unrelieved by MOM Carvedilol (Coreg) 25 mg PO BID [facility] Last Admin: 04/06/17 10:11 Dose: 25 mg Dextrose (D50w (25gm) Syringe) 50 ml IV PRN PRN PRN Reason: Hypoglycemia Epoetin Lyndon (Epogen) 20,000 unit IV SHIRAZ PRN PRN Reason: hemodialysis Last Admin: 04/04/17 15:00 Dose: 20,000 unit Furosemide (Lasix) 40 mg PO DAILY@0600 [facility] Last Admin: 04/06/17 05:59 Dose: 40 mg Hydralazine HCl (Apresoline) 10 mg IV Q4HR PRN PRN Reason: Hypertension Last Admin: 04/06/17 11:44 Dose: 10 mg Sodium Chloride (Nacl 0.9%) 100 mls @ 999 mls/hr IV SHIRAZ PRN PRN Reason: Hypotension Sodium Chloride (Nacl 0.9%) 100 mls @ 999 mls/hr IV SHIRAZ PRN PRN Reason: Hypotension Dextrose/Sodium Chloride (D5/0.45ns) 1,000 mls @ 50 mls/hr IV DIRECT [facility] Insulin Aspart (Novolog) 0 units SUB-Q AC [facility] PRN Reason: Protocol Last Admin: 04/06/17 11:51 Dose: Not Given Insulin Aspart (Novolog) 0 units SUB-Q QHS [facility] PRN Reason: Protocol Last Admin: 04/05/17 22:24 Dose: 1 units Latanoprost (Xalatan 0.005%) 1 drops OD QPM [facility] Last Admin: 04/05/17 18:00 Dose: Not Given Levetiracetam (Keppra) 1,500 mg PO BID [facility] Last Admin: 04/05/17 21:37 Dose: 1,500 mg Levothyroxine Sodium (Synthroid) 88 mcg PO DAILY@0600 [facility] Last Admin: 04/06/17 05:57 Dose: 88 mcg Multivit/Ca Carb/B Cmplx/FA/Prenat (Renal Caps) 1 cap PO QDAY [facility] Last Admin: 04/05/17 09:11 Dose: 1 cap Ondansetron HCl (Zofran) 4 mg IM Q4H PRN PRN Reason: Nausea And Vomiting Oxycodone/Acetaminophen (Percocet 5/325) 1 tab PO Q6HR PRN PRN Reason: Pain, Moderate (4-6) Last Admin: 04/05/17 20:35 Dose: 1 tab Pantoprazole Sodium (Protonix) 40 mg PO QDAY [facility] Paroxetine HCl (Paxil) 20 mg PO BID [facility] Last Admin: 04/05/17 21:37 Dose: 20 mg Review of Systems - Review of Systems All systems: negative Respiratory: shortness of breath Gastrointestinal: no abdominal pain, no nausea, no vomiting, no hematemesis, no coffee ground emesis, no BRBPR, no melena, no hematochezia Exam - Constitutional Vital Signs: Temp Pulse Resp BP Pulse Ox 99.8 F H 80 22 170/60 97 04/06/17 10:00 04/06/17 11:44 04/06/17 10:00 04/06/17 11:44 04/06/17 10:45 General appearance: mild distress (SOB due to recent transfer from bedside chair to bed) - EENT Eyes: PERRL, EOM intact ENT: hearing intact - Neck Neck: supple, normal ROM - Respiratory Respiratory: bilateral: diminished - Cardiovascular Heart Sounds: Present: S1 & S2 Extremities: No edema - Gastrointestinal General gastrointestinal: Present: soft, non-tender, non-distended, normal bowel sounds - Integumentary Integumentary: Present: warm, dry - Neurologic Neurological: alert and oriented x3 - Labs CBC & Chem 7: 04/06/17 03:41 04/05/17 04:15 Lab Results: Laboratory Results - last 24 hr 04/03/17 04/05/17 04/05/17 13:25 15:11 16:34 WBC RBC Hgb 9.4 L Hct 30.7 MCV MCH MCHC RDW Plt Count POC ABG pH 7.313 L POC ABG pCO2 63.1 H POC ABG pO2 171 H POC ABG HCO3 32.0 POC ABG Total CO2 34 POC ABG O2 Sat 99 POC ABG Base Excess 6 FiO2 2 POC Glucose Crossmatch See Detail 04/05/17 04/05/17 04/06/17 16:36 22:07 03:41 WBC 3.9 L RBC 2.38 L Hgb 7.7 L Hct 23.8 L D MCV 100 H MCH 32 MCHC 32 RDW 16.9 H Plt Count 57 L POC ABG pH POC ABG pCO2 POC ABG pO2 POC ABG HCO3 POC ABG Total CO2 POC ABG O2 Sat POC ABG Base Excess FiO2 POC Glucose 147 H 186 H Crossmatch 04/06/17 04/06/17 07:34 11:46 WBC RBC Hgb Hct MCV MCH MCHC RDW Plt Count POC ABG pH POC ABG pCO2 POC ABG pO2 POC ABG HCO3 POC ABG Total CO2 POC ABG O2 Sat POC ABG Base Excess FiO2 POC Glucose 128 H 161 H Crossmatch Assessment and Plan 1.anemia -HGB 8.2 on admission with appropriate rise to 9.3 s/p transfusion of 1 unit PRBCS yesterday -HGB 9.4 today-stable -continue to monitor H/H and transfuse as needed -no active signs of bleeding per pt and nursing -hemodynamically stable -etiology unclear- most likely due to ESRD -iron studies are pending -last EGD 2014 revealed gastritis, hiatal hernia, and 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
[2017-04-06 13:41] LABS: Hemoglobin 8.6 gm/dl (10.1-14.3)
[2017-04-06] MEDS ORDERED: NACL 0.9% 500 ML 500 ML IV NR (14:00)
--- NOTE | 2017-04-06 14:15 | Discharge Summary ---
Providers - Providers Date of Admission: 04/03/17 10:15 Attending physician: SAURABH MOE MD 04/03/17 10:16 Consult to Physician [CONS] Routine Consulting Provider: BETH DAWN Reason For Exam: CHRONIC KIDNEY DISEASE Place consult to:: DR. MILLAN Notified:: Phone number called:: [phone] Was contact made?: Yes If yes, spoke with:: PAPO Garza called:: 12:13 Comment:: JONATHON 04/06/17 07:12 Consult to Physician [CONS] Routine Consulting Provider: STACEY SHORT Reason For Exam: gi BLEED-RECURRENT Place consult to:: Notified:: Phone number called:: [phone] Was contact made?: Yes If yes, spoke with:: LOBITO Time called:: 08:16 Comment:: JONATHON 04/06/17 07:13 Consult to Physician [CONS] Routine Consulting Provider: PATRICK GILLETTE Reason For Exam: ANEMIA Place consult to:: Notified:: Phone number called:: [phone] Was contact made?: Yes If yes, spoke with:: JESENIA Garza called:: 08:17 Comment:: JONATHON Primary care physician: TOBACCO DIPPER Hospitalization Reason for admission: anemia Hospital course: 71-year-old female with a history of end-stage renal disease, right internal carotid artery stenosis, dementia, depression, dyslipidemia, COPD, hypothyroidism, glaucoma, osteoarthritis, diet-controlled diabetes mellitus type 2, end-stage renal disease on hemodialysis, hypertension, GERD, thrombocytopenia, paroxysmal atrial fibrillation not on anticoagulation because unexplained anemia with multiple colonoscopies and transfusions. Patient went to dialysis center and was told her hemoglobin is low and Dr. Dawn instructed her to come to [facility] for PRBC transfusion. Patient denies chest pain, shortness of breath, lightheadedness, dizziness, active bleeding. Patient had an episode of afib with rvr which self corrected. EKG revealed Sinus rhthm with PAC at 69. Patient was asymptomatic and is to follow with her powder compounder. Acute on Chronic Anemia requiring transfusion Type and screen Transfused 1 unit PRBC With good response Hx of multiple colonoscopy-Not sure if Capsule endoscopy has been done Equalization of Hgb noted. Per nephrology Hgb was 7.7 prior to admission Patient's hemoglobin had a few fluctuations but was stabilized. Was seen by GI and no further procedure recommended except for possible outpatient endoscopy. Outpatient capsule endoscopy Recommended Patient has had multiple endoscopies and colonoscopies. Hemodynamically stable Diabetes mellitus Accu-Chek before meals and after Sliding-scale insulin/NovoLog Diabetic education End stage renal disease on dialysis On hemodialysis Hypertension Continue on home antihypertensive medication IV hydralazine for SBP >160 Closely monitored blood pressure Paroxysmal atrial fibrillation Continue current treatment, rate controlled. Seizure disorder resume home anticonvulsant medication Dyslipidemia, Resume home antilipid medications Hypothyroidism Resumed Synthroid Hypoxic respiratory failure Likely secondary to chronic anemia oxygen was recommended for the patient to have at home. Thrombocytopenia Chronic the patient will follow with hematology oncologist outpatient. Disposition: TO HOME OR SELFCARE Time spent for discharge: 35 mins Core Measure Documentation - Palliative Care Palliative Care/ Comfort Measures: Not Applicable - Core Measures Any of the following diagnoses?: none - VTE Discharge Requirements Deep Vein Thrombosis/Pulmonary Embolism Present on Admission: No Exam - Physical Exam Narrative exam: VITAL SIGNS: Reviewed. GENERAL: The patient appeared well nourished and normally developed. Vital signs as documented. HEAD: No signs of head trauma. EYES: Pupils are equal. Extraocular motions intact. EARS: Hearing grossly intact. MOUTH: Oropharynx is normal. NECK: No adenopathy, no JVD. CHEST: Chest with clear breath sounds bilaterally. No wheezes, rales, or rhonchi. CARDIAC: Regular rate and rhythm. S1 and S2, without murmurs, gallops, or rubs. VASCULAR: No Edema. Peripheral pulses normal and equal in all extremities. ABDOMEN: Soft, without detectable tenderness. No sign of distention. No rebound or guarding, and no masses palpated. Bowel Sounds normal. MUSCULOSKELETAL: Good range of motion of all major joints. Extremities without clubbing, cyanosis or edema. NEUROLOGIC EXAM: Alert and oriented x 3. No focal sensory or strength deficits. Speech normal. Follows commands. PSYCHIATRIC: Mood normal. SKIN: No rash or lesions. - Constitutional Vitals: Temp Pulse Resp BP Pulse Ox 98.7 F 81 16 150/57 99 04/06/17 13:00 04/06/17 13:45 04/06/17 13:00 04/06/17 13:45 04/06/17 13:00 Plan Activity: advance as tolerated, fall precautions Diet: diabetic Special Instructions: record daily BP diary, record blood sugar diary Follow up with: KANCHAN OROSCO MD [Staff Physician] - 7 Days STACEY SHORT MD [Staff Physician] - 7 Days BETH DAWN MD [Staff Physician] - 7 Days PRIMARY CARE, [Primary Care Provider] - 7 Days PATRICK GILLETTE MD [Staff Physician] - 7 Days Prescriptions: oxyCODONE /ACETAMINOPHEN [Percocet 5/325 mg] 1 tab PO Q6HR PRN #12 tablet PRN Reason: Pain, Moderate (4-6) Pantoprazole [Protonix TAB] 40 mg PO QDAY #30 tablet
--- NOTE | 2017-04-07 00:23 | Progress Note ---
Assessment and Plan Assessment and plan: 71-year-old female with a history of end-stage renal disease, right internal carotid artery stenosis, dementia, depression, dyslipidemia, COPD, hypothyroidism, glaucoma, osteoarthritis, diet-controlled diabetes mellitus type 2, end-stage renal disease on hemodialysis, hypertension, GERD, thrombocytopenia, paroxysmal atrial fibrillation not on anticoagulation because unexplained anemia with multiple colonoscopies and transfusions. Patient went to dialysis center and was told her hemoglobin is low and Dr. Dawn instructed her to come to [facility] for PRBC transfusion. Patient denies chest pain, shortness of breath, lightheadedness, dizziness, active bleeding. Hypoxic respiratory failure * Hemoglobin fluctuation noted but no overt bleeding Chronic Anemia requiring transfusion patient recieved 1 unit PRBC with GI outpatient stool occult blood + Hemodynamically stable Diabetes mellitus Accu-Chek before meals and after Sliding-scale insulin/NovoLog Diabetic education End stage renal disease on dialysis On hemodialysis Hypertension Continue on home antihypertensive medication IV hydralazine for SBP >160 Closely monitor blood pressure Paroxysmal atrial fibrillation Continue current treatment, rate controlled. Seizure disorder resume home anticonvulsant medication Dyslipidemia, Resume home antilipid medications Hypothyroidism Resume Synthroid DVT prophylaxis SCD History Interval history: Patient seen and examined, awaiting oxygen for home discharge but had bleeding and hypotension with hypertension later today Hospitalist Physical - Physical exam Narrative exam: VITAL SIGNS: Reviewed. GENERAL: The patient appeared well nourished and normally developed. Vital signs as documented. HEAD: No signs of head trauma. EYES: Pupils are equal. Extraocular motions intact. EARS: Hearing grossly intact. MOUTH: Oropharynx is normal. NECK: No adenopathy, no JVD. CHEST: Chest with clear breath sounds bilaterally. No wheezes, rales, or rhonchi. CARDIAC: Regular rate and rhythm. S1 and S2, without murmurs, gallops, or rubs. VASCULAR: No Edema. Peripheral pulses normal and equal in all extremities. ABDOMEN: Soft, without detectable tenderness. No sign of distention. No rebound or guarding, and no masses palpated. Bowel Sounds normal. MUSCULOSKELETAL: Good range of motion of all major joints. Extremities without clubbing, cyanosis or edema. NEUROLOGIC EXAM: Alert and oriented x 3. No focal sensory or strength deficits. Speech normal. Follows commands. PSYCHIATRIC: Mood normal. SKIN: No rash or lesions. - Constitutional Vitals: Temp Pulse Resp BP Pulse Ox 98.8 F 80 16 148/45 99 04/06/17 17:58 04/06/17 17:58 04/06/17 17:58 04/06/17 17:58 04/06/17 17:58 General appearance: Present: no acute distress, well-nourished Results - Labs CBC & Chem 7: 04/06/17 20:16 04/05/17 04:15 Labs: Laboratory Last Values WBC 3.9 K/mm3 (4.5-11.0) L 04/06/17 03:41 RBC 2.38 M/mm3 (3.65-5.03) L 04/06/17 03:41 Hgb 8.0 gm/dl (10.1-14.3) L 04/06/17 20:16 Hct 30.0 % (30.3-42.9) L 04/06/17 20:16 MCV 100 fl (79-97) H 04/06/17 03:41 MCH 32 pg (28-32) 04/06/17 03:41 MCHC 32 % (30-34) 04/06/17 03:41 RDW 16.9 % (13.2-15.2) H 04/06/17 03:41 Plt Count 57 K/mm3 (140-440) L 04/06/17 03:41 [place] % (Auto) Petroleum Production Engineer 04/04/17 03:41 Add Manual Diff Complete 04/04/17 03:41 Total Counted 100 04/04/17 03:41 Seg Neuts % (Manual) 69.0 % (40.0-70.0) 04/04/17 03:41 Band Neutrophils % 7.0 % 04/04/17 03:41 Lymphocytes % (Manual) 6.0 % (13.4-35.0) L 04/04/17 03:41 Reactive Lymphs % (Man) 0 % 04/04/17 03:41 Monocytes % (Manual) 18.0 % (0.0-7.3) H 04/04/17 03:41 Eosinophils % (Manual) 0 % (0.0-4.3) 04/04/17 03:41 Basophils % (Manual) 0 % (0.0-1.8) 04/04/17 03:41 Metamyelocytes % 0 % 04/04/17 03:41 Myelocytes % 0 % 04/04/17 03:41 Promyelocytes % 0 % 04/04/17 03:41 Blast Cells % 0 % 04/04/17 03:41 Nucleated RBC % Not Reportable 04/04/17 03:41 Seg Neutrophils # Man 5.0 K/mm3 (1.8-7.7) 04/04/17 03:41 Band Neutrophils # 0.5 K/mm3 04/04/17 03:41 Lymphocytes # (Manual) 0.4 K/mm3 (1.2-5.4) L 04/04/17 03:41 Abs React Lymphs (Man) 0.0 K/mm3 04/04/17 03:41 Monocytes # (Manual) 1.3 K/mm3 (0.0-0.8) H 04/04/17 03:41 Eosinophils # (Manual) 0.0 K/mm3 (0.0-0.4) 04/04/17 03:41 Basophils # (Manual) 0.0 K/mm3 (0.0-0.1) 04/04/17 03:41 Metamyelocytes # 0.0 K/mm3 04/04/17 03:41 Myelocytes # 0.0 K/mm3 04/04/17 03:41 Promyelocytes # 0.0 K/mm3 04/04/17 03:41 Blast Cells # 0.0 K/mm3 04/04/17 03:41 WBC Morphology Not Reportable 04/04/17 03:41 Hypersegmented Neuts Not Reportable 04/04/17 03:41 Hyposegmented Neuts Not Reportable 04/04/17 03:41 Hypogranular Neuts Not Reportable 04/04/17 03:41 Smudge Cells Not Reportable 04/04/17 03:41 Toxic Granulation Not Reportable 04/04/17 03:41 Toxic Vacuolation Not Reportable 04/04/17 03:41 Dohle Bodies Not Reportable 04/04/17 03:41 Pelger-Huet Anomaly Not Reportable 04/04/17 03:41 Juanpablo Rods Not Reportable 04/04/17 03:41 Platelet Estimate Consistent w auto 04/04/17 03:41 Clumped Platelets Not Reportable 04/04/17 03:41 Plt Clumps, EDTA Not Reportable 04/04/17 03:41 Large Platelets Not Reportable 04/04/17 03:41 Giant Platelets Not Reportable 04/04/17 03:41 Platelet Satelliting Not Reportable 04/04/17 03:41 Plt Morphology Comment Not Reportable 04/04/17 03:41 RBC Morphology Not Reportable 04/04/17 03:41 Dimorphic RBCs Not Reportable 04/04/17 03:41 Polychromasia Rare 04/04/17 03:41 Hypochromasia Not Reportable 04/04/17 03:41 Poikilocytosis Not Reportable 04/04/17 03:41 Anisocytosis 1+ 04/04/17 03:41 Microcytosis Not Reportable 04/04/17 03:41 Macrocytosis Not Reportable 04/04/17 03:41 Spherocytes Not Reportable 04/04/17 03:41 Pappenheimer Bodies Not Reportable 04/04/17 03:41 Sickle Cells Not Reportable 04/04/17 03:41 Target Cells Not Reportable 04/04/17 03:41 Tear Drop Cells Not Reportable 04/04/17 03:41 Ovalocytes Not Reportable 04/04/17 03:41 Helmet Cells Not Reportable 04/04/17 03:41 Weiss-Aspers Bodies Not Reportable 04/04/17 03:41 [place] Rings Not Reportable 04/04/17 03:41 [place] Cells Not Reportable 04/04/17 03:41 Bite Cells Not Reportable 04/04/17 03:41 Crenated Cell Not Reportable 04/04/17 03:41 Elliptocytes Not Reportable 04/04/17 03:41 Acanthocytes (Spur) Not Reportable 04/04/17 03:41 Rouleaux Not Reportable 04/04/17 03:41 Hemoglobin C Crystals Not Reportable 04/04/17 03:41 Schistocytes Not Reportable 04/04/17 03:41 Malaria parasites Not Reportable 04/04/17 03:41 Percent Retic 2.74 % (0.78-2.58) H 04/03/17 13:31 Chad Bodies Not Reportable 04/04/17 03:41 Hem Pathologist Commnt No 04/04/17 03:41 POC ABG pH 7.313 (7.35-7.45) L 04/05/17 15:11 POC ABG pCO2 63.1 (35-45) H 04/05/17 15:11 POC ABG pO2 171 (80-105) H 04/05/17 15:11 POC ABG HCO3 32.0 04/05/17 15:11 POC ABG Total CO2 34 04/05/17 15:11 POC ABG O2 Sat 99 04/05/17 15:11 POC ABG Base Excess 6 04/05/17 15:11 FiO2 2 % 04/05/17 15:11 Sodium 143 mmol/L (137-145) 04/05/17 04:15 Potassium 3.8 mmol/L (3.6-5.0) 04/05/17 04:15 Chloride 101.0 mmol/L (98-107) 04/05/17 04:15 Carbon Dioxide 29 mmol/L (22-30) 04/05/17 04:15 Anion Gap 17 mmol/L 04/05/17 04:15 BUN 25 mg/dL (7-17) H 04/05/17 04:15 Creatinine 3.6 mg/dL (0.7-1.2) H 04/05/17 04:15 Estimated GFR 12 ml/min 04/05/17 04:15 BUN/Creatinine Ratio 6.94 % 04/05/17 04:15 Glucose 122 mg/dL (65-100) H 04/05/17 04:15 POC Glucose 161 (70-105) H 04/06/17 11:46 Calcium 7.9 mg/dL (8.4-10.2) L 04/05/17 04:15 Blood Type O POSITIVE 04/06/17 13:50 Antibody Screen Positive 04/06/17 13:50 Antibody Identification Anti-E 04/06/17 13:50 Crossmatch See Detail 04/06/17 13:50
[2017-04-07] MEDS: NOVOLOG SUB-Q SCH (00:32)
[2017-04-07] MEDS: KEPPRA PO SCH ×2 (00:32→10:40)
[2017-04-07] MEDS: PAXIL PO SCH ×2 (00:33→10:42)
--- NOTE | 2017-04-07 09:23 | Gastroenterology Progress Note ---
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 No acute distress. No signs of active bleeding overnight or this am per pt and nursing. Objective - Constitutional Vitals: Temp Pulse Resp BP Pulse Ox 98.8 F 86 20 160/68 98 04/06/17 17:58 04/06/17 22:00 04/06/17 22:00 04/06/17 22:00 04/06/17 22:00 General appearance: no acute distress, well-nourished - EENT Eyes: PERRL, EOM intact ENT: hearing intact - Neck Neck: supple, normal ROM - Respiratory Respiratory: bilateral: diminished - Cardiovascular Rhythm: regular Heart Sounds: Present: S1 & S2 - Extremities Extremities: No edema - Gastrointestinal General gastrointestinal: Present: soft, non-tender, non-distended, normal bowel sounds - Integumentary Integumentary: Present: warm, dry - Neurologic Neurological: alert and oriented x3 - Labs CBC & Chem 7: 04/06/17 20:16 04/05/17 04:15 Labs: Laboratory Results - last 24 hr 04/03/17 04/06/17 04/06/17 13:25 10:21 11:46 Hgb 8.6 L Hct 27.0 L POC Glucose 161 H Blood Type Antibody Screen Antibody Identification Crossmatch See Detail 04/06/17 04/06/17 04/06/17 13:50 18:03 20:16 Hgb 8.0 L Hct 30.0 L POC Glucose 137 H Blood Type O POSITIVE Antibody Screen Positive Antibody Identification Anti-E Crossmatch See Detail 04/06/17 04/07/17 21:55 07:40 Hgb Hct POC Glucose 134 H 106 H Blood Type Antibody Screen Antibody Identification Crossmatch
--- NOTE | 2017-04-07 10:20 | Progress Note ---
Assessment and Plan Impression * End-stage renal disease on maintenance hemodialysis * Severe anemia * Hypertension * Diabetes * Hyperparathyroidism Recommendations * Status post packed RBC transfusion. . * No evidence of overt blood loss. * HD Tuesdays, and Saturdays schedule as outpatient as well * Adjust diet and meds for ESRD state * No IV, BP of any puncture in her access arm * Binders and diet * Her EKG today showed sinus rhythm with PACs * Patient has had GI workup in the past . Patient will also need a GI follow-up for capsule endoscopy as outpatient * ok to dc from renal standpoint Subjective Date of service: 04/07/17 Principal diagnosis: anemia Interval history: resting well in bed today, but complains of sob Objective - Exam Narrative Exam: General appearance: well-developed, well-nourished, appears stated age EENT: PERRL, mucous membranes moist Neck: no JVD, no thyromegaly, no carotid bruit, supple Respiratory: Present: Clear to Ascultation Cardiology: irregularly irregular Gastrointestinal: normal, normoactive bowel sounds Integumentary: no rash, other (no edema. AV graft in her left arm. Good bruit and thrill) - Lab 04/06/17 20:16 04/05/17 04:15 Most recent lab results Calcium 7.9 mg/dL (8.4-10.2) L 04/05/17 04:15
[2017-04-07] MEDS: Renal Caps PO SCH (10:41)
[2017-04-07] MEDS: PROTONIX PO SCH (10:41)
[2017-04-07] MEDS: COREG PO SCH (10:42)
[2017-04-07 10:44] LABS: Reticulocyte % 1.83 % (0.78-2.58)
[2017-04-07 10:55] LABS: Total Iron Binding Capacity 141.4 mcg/dL (250-450)
[2017-04-07 16:46] VITALS: BP 111/39
--- NOTE | 2017-04-07 23:04 | Consultation ---
REFERRING PHYSICIAN: Javier Baker M.D. REASON FOR CONSULTATION: Anemia and thrombocytopenia. HISTORY OF PRESENT ILLNESS: The patient is a 71-year-old female with end-stage renal disease, carotid artery stenosis, dementia, depression, dyslipidemia, COPD, hypothyroidism, osteoarthritis, diabetes, who has had chronic thrombocytopenia, which I can date back to at least 2013. She also has had chronic anemia, has had colonoscopy. The last one was in 2014 where she had blood noted in her GI tract. Primary source was not quite identified at that time. She has had multiple transfusions. She presented to the hospital with weakness and in the dialysis center, she found to have a hemoglobin of less than 8 and was sent to the hospital for that. The patient denied any blood in the stool at this time. She denied any dark stools or diarrhea. She has been on hemodialysis. Iron studies were drawn, I do not have the results. HIT panel was also drawn. Her platelet count on admission was 82, which came down to [address] back to 2013, she has had thrombocytopenia in the past. She has had anemia workup including B12 levels. Her B12 level in 2014 was borderline low below 400. Other pertinent labs show her MCV to be on this admission to be 103 on admission. On 04/06/2017, it was 100. SOCIAL HISTORY: The patient does not smoke or drink. PAST MEDICAL HISTORY: As mentioned in history of present illness. PHYSICAL EXAMINATION: GENERAL: The patient is awake and oriented. HEENT: Unremarkable except for pallor noted in the conjunctivae. CHEST: Clear bilaterally. CARDIOVASCULAR: Regular rate and rhythm. ABDOMEN: Soft. EXTREMITIES: Has no clubbing, cyanosis, or edema. LABORATORY DATA: Pertinent labs last night showed hemoglobin of 8, hematocrit 30, MCV was 100, platelets 57,000. The patient's retic count on 04/03/2017 was 2.74. The patient's creatinine on 04/05/2017 was 3.6. ASSESSMENT: Anemia, cause is multifactorial. She has had guaiac positive stools this time and has had GI bleeding in the past. GI bleeding could be contributing to that. The patient states that when she gets dialyzed, her AV fistula bleeds a lot and that could be contributing to the anemia too. The patient has renal failure, which also could contribute to the anemia. Thrombocytopenia seems to be chronic, rule out liver disease, rule out of hepatitis. PLAN: At this time, we will follow her counts carefully. We will check B12 level, do anemia workup and hepatitis profile. Monitor counts. Transfuse as needed. We will follow. If anemia worsens without any obvious cause, may need to do a bone marrow biopsy to rule out any primary bone marrow pathology such as myelodysplasia, etc. We will follow. JOB# [id number] MIKAYLA/JG
[2017-04-08 16:36] LABS: Heparin-Induced Platelet Antib Negative (Negative); Unfractionated Heparin Negative (Negative)
== END 2017-04-07 19:30 | disposition home or self-care (01) ==
LOC: CC2 09:39 → UNDOADMOB 09:39 → CC2 10:15
PROVIDERS: ADMIT Internal Medicine; ATTEND Internal Medicine
DX: E11.22 Type 2 diabetes mellitus with diabetic chronic kidney disease (principal); I12.0 Hypertensive chronic kidney disease with stage 5 chronic kidney disease or end stage renal disease; D63.1 Anemia in chronic kidney disease; N18.6 End stage renal disease; I48.0 Paroxysmal atrial fibrillation; G40.909 Epilepsy, unspecified, not intractable, without status epilepticus; E78.5 Hyperlipidemia, unspecified; E03.9 Hypothyroidism, unspecified; J44.9 Chronic obstructive pulmonary disease, unspecified; I65.21 Occlusion and stenosis of right carotid artery; F32.9 Major depressive disorder, single episode, unspecified; K21.9 Gastro-esophageal reflux disease without esophagitis; Z99.2 Dependence on renal dialysis; Z79.4 Long term (current) use of insulin
CPT/HCPCS: 36415; 36430; 36600; 80048; 82270; 82607; 82747; 82803; 82962; 83550; 85007; 85014; 85018; 85025; 85027; 85045; 86022; 86706; 86803; 86850; 86870; 86900; 86901; 86902; 86922; 93005; 93010; 94760; 96361; 96372; 96374; 96376; A9270; G0378; G0379; J0360; J0885; J1644; J7030; J7040; P9016; J1815

== ENCOUNTER 2017-04-27 15:31 | Emergency (ER) | payer MEDICARE ==
--- NOTE | 2017-04-27 18:23 | Emergency Department Report ---
Chief Complaint: Recheck/Abnormal Lab/Rx Stated Complaint: dialysis Pt, low blood count Time Seen by Provider: 04/27/17 18:22 - HPI History of Present Illness: Patient here reported blood count low had transfusion 2 weeks ago at this hospital. She said her white count was 7.1. She says she knows her blood count of those because she is having shortness of breath and her color is pale. She says she is feeling tired. Denies any chest pain or any other pain. Patient gets dialysis Thursday than Thursday and her axis is inner arm. She goes to [facility] and her next dialysis is due tomorrow patient was last here on 04/03/2003/15/2017. 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 - ROS Review of Systems: All systems are negative unless stated in HPI above. - Exam Vital Signs: Vital Signs 04/27/17 16:54 Temperature 98.2 F Pulse Rate 74 Respiratory 16 Rate Blood Pressure 141/69 O2 Sat by Pulse 99 Oximetry Physical Exam: Gen.: This is a 74-year-old female well-nourished well-developed in no acute distress. Cardiovascular: S1, S2. Regular rate rhythm negative murmur MSE screening note: Focused history and physical exam performed. Due to findings the following was ordered:see mdm ED Medical Decision Making - Medical Decision Making MDM: Patient screened by provider in triage area. Appropriate protocol initiated and patient to be seen in main ED by Dr. HOLLOWAY Disposition for MSE Condition: Stable
[2017-04-27 19:11] LABS: Hematocrit 25.2 % (30.3-42.9); Mean Corpuscular HGB Conc 32 % (30-34); Mean Corpuscular Hemoglobin 32 pg (28-32); Mean Corpuscular Volume 100 fl (79-97); Platelet Count 75 K/mm3 (140-440); Red Blood Count 2.53 M/mm3 (3.65-5.03); Red Cell Distribution Width 16.7 % (13.2-15.2); White Blood Count 3.7 K/mm3 (4.5-11.0)
[2017-04-27 19:23] LABS: Albumin 3.6 g/dL (3.9-5); Albumin/Globulin Ratio 1.1 %; Bilirubin,Total 0.3 mg/dL (0.1-1.2); Calcium 8.7 mg/dL (8.4-10.2); Potassium 4.2 mmol/L (3.6-5.0); Total Protein 6.8 g/dL (6.3-8.2)
[2017-04-27 19:49] LABS: Anisocytosis 1+; Blastocytes % (Manual) 0 %; Hypochromasia 2+
[2017-04-27 19:50] LABS: Diff Status Complete; Ovalocytes 1+; Platelet Estimate Appears Decreased
[2017-04-28] MEDS ORDERED: SYNTHROID PO SCH ×2 (06:00→12:30)
--- NOTE | 2017-04-28 11:25 | Emergency Department Report ---
ED General Adult HPI - General Chief complaint: Recheck/Abnormal Lab/Rx Stated complaint: dialysis Pt, low blood count Time Seen by Provider: 04/27/17 18:22 Source: patient, RN notes reviewed, old records reviewed Mode of arrival: Ambulatory Limitations: No Limitations - History of Present Illness Initial comments: This is a 71-year-old female. The patient is previously unknown to this provider. Her hip hop artist is Dr. Finley. She typically gets dialysis on Thursday, , Thursday. Has a past medical history of dementia, depression, high cholesterol, COPD, hypothyroidism, glaucoma, arthritis, paroxysmal atrial fibrillation, not currently on anticoagulation, and explained anemia. She is sent to the ER by her hip hop artist for evaluation of outpatient laboratory studies, which demonstrated a hemoglobin of 6. Today, her hemoglobin is not 6. She denies headache, neck pain, abdominal pain, hematemesis and bright red blood per rectum. Patient has chronic shortness of breath which is not new, worse or different. Patient has mild dysuria, but declines straight catheterization for urine sample , and indicates that she prefers to follow up as an outpatient. She indicates that if she were not sent to the ER for evaluation by her hip hop artist, she would not have presented for evaluation. Severity scale (0 -10): 0 Improves with: none Worsens with: none Associated Symptoms: shortness of breath - Related Data Home Medications Medication Instructions Recorded Confirmed Last Taken Aspirin [Aspirin BABY CHEW TAB] 81 mg PO QDAY 12/24/15 04/03/17 04/03/17 05:30 AtorvaSTATin [Lipitor] 40 mg PO DAILY 12/24/15 04/03/17 04/02/17 21:00 Carvedilol [Coreg] 25 mg PO BID 12/24/15 04/03/17 04/03/17 05:30 Paroxetine HCl [PARoxetine] 20 mg PO BID 12/24/15 04/03/17 04/03/17 05:30 Vit B Cmplx 3/FA/Vit C/Biotin 1 each PO DAILY 12/24/15 04/03/17 04/03/17 05:30 [[facility] Rx Tablet] Latanoprost 0.005% [Xalatan 0.005%] 1 drop OP QPM 02/15/16 04/03/17 04/02/17 21: 00 Levothyroxine [Synthroid] 88 mcg PO QAM 02/15/16 04/03/17 04/03/17 04:05 Timolol [Betimol] 1 drop OU BID 02/15/16 04/03/17 04/03/17 05:30 Previous Rx's Medication Instructions Recorded Last Taken Type levETIRAcetam [Keppra TAB] 1,500 mg PO BID 30 Days 12/26/15 04/03/17 05:30 Rx Folic Acid/Vit B Comp W-C [Renal 1 cap PO QDAY capsule 03/04/17 04/03/17 05:30 Rx Caps] Furosemide [Lasix TAB] 40 mg PO DAILY tablet 03/04/17 04/03/17 05:30 Rx levETIRAcetam [Keppra TAB] 1,500 mg PO BID tablet 03/04/17 04/03/17 05:30 Rx oxyCODONE /ACETAMINOPHEN [Percocet 1 tab PO Q6HR PRN #12 tablet 04/05/17 Unknown Rx 5/325 mg] Pantoprazole [Protonix TAB] 40 mg PO QDAY #30 tablet 04/06/17 Unknown Rx Allergies Allergy/AdvReac Type Severity Reaction Status Date / Time benazepril HCl [From Lotrel] Allergy Swelling Verified 02/18/16 09:16 diphenhydramine HCl Allergy Swelling Verified 08/11/14 20:39 [From Benadryl] latex AdvReac Swelling Verified 02/18/16 09:15 ED Review of Systems ROS: Stated complaint: dialysis Pt, low blood count Other details as noted in HPI Constitutional: malaise (chronic). denies: fever Respiratory: shortness of breath (chronic) Cardiovascular: denies: chest pain Gastrointestinal: denies: abdominal pain, hematemesis, melena, hematochezia Genitourinary: dysuria Musculoskeletal: as per HPI Skin: as per HPI Neurological: as per HPI, weakness (chronic) ED Past Medical Hx - Past Medical History Hx Hypertension: Yes Hx Heart Attack/AMI: No Hx Diabetes: Yes Hx GERD: Yes Hx Liver Disease: No Hx Renal Disease: Yes Hx Arthritis: Yes Hx Seizures: Yes Hx Asthma: No Hx COPD: Yes Hx Dementia: Yes Hx HIV: No Additional medical history: Paroxysmal atrial fibrillation - Surgical History Additional Surgical History: Hysterectomy, left upper extremity AV shunt, right chest permacath - Social History Smoking Status: Never Smoker Substance Use Type: None - Medications Home Medications: Home Medications Medication Instructions Recorded Confirmed Last Taken Type Aspirin [Aspirin BABY CHEW TAB] 81 mg PO QDAY 12/24/15 04/03/17 04/03/17 05:30 History AtorvaSTATin [Lipitor] 40 mg PO DAILY 12/24/15 04/03/17 04/02/17 21:00 History Carvedilol [Coreg] 25 mg PO BID 12/24/15 04/03/17 04/03/17 05:30 History Paroxetine HCl [PARoxetine] 20 mg PO BID 12/24/15 04/03/17 04/03/17 05:30 History Vit B Cmplx 3/FA/Vit C/Biotin 1 each PO DAILY 12/24/15 04/03/17 04/03/17 05:30 History [[facility]ell-[facility]ana Rx Tablet] levETIRAcetam [Keppra TAB] 1,500 mg PO BID 30 Days 12/26/15 04/03/17 04/03/17 05 :30 Rx Latanoprost 0.005% [Xalatan 0.005%] 1 drop OP QPM 02/15/16 04/03/17 04/02/17 21: 00 History Levothyroxine [Synthroid] 88 mcg PO QAM 02/15/16 04/03/17 04/03/17 04:05 History Timolol [Betimol] 1 drop OU BID 02/15/16 04/03/17 04/03/17 05:30 History Folic Acid/Vit B Comp W-C [Renal 1 cap PO QDAY capsule 03/04/17 04/03/17 05:30 Rx Caps] Furosemide [Lasix TAB] 40 mg PO DAILY tablet 03/04/17 04/03/17 04/03/17 05:30 Rx levETIRAcetam [Keppra TAB] 1,500 mg PO BID tablet 03/04/17 04/03/17 04/03/17 05 :30 Rx oxyCODONE /ACETAMINOPHEN [Percocet 1 tab PO Q6HR PRN #12 tablet 04/05/17 Unknown Rx 5/325 mg] Pantoprazole [Protonix TAB] 40 mg PO QDAY #30 tablet 04/06/17 Unknown Rx ED Physical Exam - General Limitations: No Limitations General appearance: alert, in no apparent distress - Head Head exam: Present: atraumatic, normocephalic - Eye Eye exam: Present: normal appearance, EOMI. Absent: nystagmus - ENT ENT exam: Present: normal exam, normal orophraynx, mucous membranes moist, normal external ear exam - Neck Neck exam: Present: normal inspection, full ROM. Absent: tenderness, meningismus - Respiratory Respiratory exam: Present: normal lung sounds bilaterally. Absent: respiratory distress, wheezes, rales, rhonchi, stridor, chest wall tenderness, accessory muscle use, decreased breath sounds, prolonged expiratory - Cardiovascular Cardiovascular Exam: Present: regular rate, normal rhythm, normal heart sounds. Absent: bradycardia, tachycardia, irregular rhythm, systolic murmur, diastolic murmur, rubs, gallop - GI/Abdominal GI/Abdominal exam: Present: soft, normal bowel sounds. Absent: distended, tenderness, guarding, rebound, rigid, pulsatile mass - Extremities Exam Extremities exam: Present: normal inspection, full ROM, normal capillary refill , other (left upper extremity AV fistula, appropriate thrill, no redness, pus or streaking). Absent: pedal edema, joint swelling, calf tenderness - Back Exam Back exam: Present: normal inspection, full ROM. Absent: CVA tenderness (L), muscle spasm, paraspinal tenderness, vertebral tenderness - Neurological Exam Neurological exam: Present: alert, oriented X3, other (Extraocular movements intact. Tongue midline. No facial droop. Facial sensation intact to light touch in the V1, V2, V3 distribution bilaterally. 5 and 5 strength in 4 extremities.. Sensation is intact to light touch in 4 extremities.). Absent: motor sensory deficit - Psychiatric Psychiatric exam: Present: normal affect, normal mood - Skin Skin exam: Present: warm, dry, intact, normal color. Absent: rash ED Course Vital Signs 04/27/17 04/28/17 04/28/17 16:54 00:13 08:47 Temperature 98.2 F 98.0 F 97 F L Pulse Rate 74 83 76 Respiratory 16 18 18 Rate Blood Pressure 141/69 226/79 Blood Pressure 200/68 [Right] O2 Sat by Pulse 99 97 98 Oximetry 04/28/17 11:33 Temperature 98 F Pulse Rate 73 Respiratory 16 Rate Blood Pressure Blood Pressure 195/62 [Right] O2 Sat by Pulse Oximetry - Reevaluation(s) Reevaluation #1: 04/28/17 18:50 Patient was observed in the ER for a period of time. She had no issues or complaints. She is going to get dialysis in the morning. ED Medical Decision Making - Lab Data Result diagrams: 04/27/17 18:44 04/27/17 18:44 Vital Signs 04/27/17 04/28/17 04/28/17 16:54 00:13 08:47 Temperature 98.2 F 98.0 F 97 F L Pulse Rate 74 83 76 Respiratory 16 18 18 Rate Blood Pressure 141/69 226/79 Blood Pressure 200/68 [Right] O2 Sat by Pulse 99 97 98 Oximetry 04/28/17 11:33 Temperature 98 F Pulse Rate 73 Respiratory 16 Rate Blood Pressure Blood Pressure 195/62 [Right] O2 Sat by Pulse Oximetry Lab Results 04/27/17 04/27/17 04/27/17 Range/Units 18:44 18:44 18:45 WBC 3.7 L (4.5-11.0) K/mm3 RBC 2.53 L (3.65-5.03) M/mm3 Hgb 8.0 L (10.1-14.3) gm/dl Hct 25.2 L (30.3-42.9) % MCV 100 H (79-97) fl MCH 32 (28-32) pg MCHC 32 (30-34) % RDW 16.7 H (13.2-15.2) % Plt Count 75 L (140-440) K/mm3 King % (Auto) Platform Material Handling Supervisor Add Manual Diff Complete Total Counted 100 Seg Neuts % (Manual) 28.0 L (40.0-70.0) % Band Neutrophils % 9.0 % Lymphocytes % (Manual) 41.0 H (13.4-35.0) % Reactive Lymphs % (Man) 1.0 % Monocytes % (Manual) 18.0 H (0.0-7.3) % Eosinophils % (Manual) 2.0 (0.0-4.3) % Basophils % (Manual) 1.0 (0.0-1.8) % Metamyelocytes % 0 % Myelocytes % 0 % Promyelocytes % 0 % Blast Cells % 0 % Nucleated RBC % Not Reportable Seg Neutrophils # Man 1.0 L (1.8-7.7) K/mm3 Band Neutrophils # 0.3 K/mm3 Lymphocytes # (Manual) 1.5 (1.2-5.4) K/mm3 Abs React Lymphs (Man) 0.0 K/mm3 Monocytes # (Manual) 0.7 (0.0-0.8) K/mm3 Eosinophils # (Manual) 0.1 (0.0-0.4) K/mm3 Basophils # (Manual) 0.0 (0.0-0.1) K/mm3 Metamyelocytes # 0.0 K/mm3 Myelocytes # 0.0 K/mm3 Promyelocytes # 0.0 K/mm3 Blast Cells # 0.0 K/mm3 WBC Morphology Not Reportable Hypersegmented Neuts Not Reportable Hyposegmented Neuts Not Reportable Hypogranular Neuts Not Reportable Smudge Cells Not Reportable Toxic Granulation Not Reportable Toxic Vacuolation Not Reportable Dohle Bodies Not Reportable Pelger-Huet Anomaly Not Reportable Juanpablo Rods Not Reportable Platelet Estimate Appears decreased Clumped Platelets Not Reportable Plt Clumps, EDTA Not Reportable Large Platelets Not Reportable Giant Platelets Not Reportable Platelet Satelliting Not Reportable Plt Morphology Comment Not Reportable RBC Morphology Not Reportable Dimorphic RBCs Not Reportable Polychromasia Not Reportable Hypochromasia 2+ Poikilocytosis Not Reportable Anisocytosis 1+ Microcytosis Not Reportable Macrocytosis Not Reportable Spherocytes Not Reportable Pappenheimer Bodies Not Reportable Sickle Cells Not Reportable Target Cells Not Reportable Tear Drop Cells Not Reportable Ovalocytes 1+ Helmet Cells Not Reportable Weiss-[place] Bodies Not Reportable [place] Rings Not Reportable Luis Cells Not Reportable Bite Cells Not Reportable Crenated Cell Not Reportable Elliptocytes Not Reportable Acanthocytes (Spur) Not Reportable Rouleaux Not Reportable Hemoglobin C Crystals Not Reportable Schistocytes Not Reportable Malaria parasites Not Reportable Chad Bodies Not Reportable Hem Pathologist Commnt No Sodium 138 (137-145) mmol/L Potassium 4.2 (3.6-5.0) mmol/L Chloride 98.0 (98-107) mmol/L Carbon Dioxide 23 (22-30) mmol/L Anion Gap 21 mmol/L BUN 42 H (7-17) mg/dL Creatinine 5.9 H (0.7-1.2) mg/dL Estimated GFR 7 ml/min BUN/Creatinine Ratio 7 % Glucose 105 H (65-100) mg/dL Calcium 8.7 (8.4-10.2) mg/dL Total Bilirubin 0.30 (0.1-1.2) mg/dL AST 20 (5-40) units/L ALT 12 (7-56) units/L Alkaline Phosphatase 68 (35-129) units/L Total Protein 6.8 (6.3-8.2) g/dL Albumin 3.6 L (3.9-5) g/dL Albumin/Globulin Ratio 1.1 % Blood Type O POSITIVE Antibody Screen TNR MARTINA Antibody Screen Negative Crossmatch See Detail - Radiology Data Radiology results: report reviewed, image reviewed X-ray of the chest demonstrates chronic findings, nothing new acute or different - Medical Decision Making Differential diagnosis: Chronic anemia, chronic shortness of breath, laboratory error Assessment and plan: 71-year-old female sent to the ER for a symptomatic anemia. Hemoglobin and hematocrit appear to be at baseline, she has no acute complaints at this time, she declines straight catheterized urine sample, I see no reason to perform packed red blood cell transfusion at this time. She is somewhat hypertensive, this will be expected given her chronic medical issues. Discussed the case with nurse practitioner Jenifer webster for her primary hip hop artist, Dr. Torres. She instructed me that the patient can follow up tomorrow first thing for dialysis. Patient is given her outpatient medications. She'll be discharged at this time. Return precautions are reviewed. Critical care attestation.: If time is entered above; I have spent that time in minutes in the direct care of this critically ill patient, excluding procedure time. ED Disposition Clinical Impression: Anemia in end-stage renal disease Disposition: DC-01 TO HOME OR SELFCARE Is pt being admited?: No Does the pt Need Aspirin: No Condition: Good Instructions: Chronic Kidney Disease (ED) Additional Instructions: Continue outpatient medications. Follow-up first thing tomorrow morning for dialysis. Return to the ER right away with fevers, chills, chest pain, shortness of breath, intractable nausea or vomiting, confusion, inability to tolerate liquid feeds, new, worsening or different symptoms. Referrals: PRIMARY CARE, [Primary Care Provider] - 3-5 Days SHAYLEE MAI MD [Staff Physician] - 3-5 Days
[2017-04-28 11:34] VITALS: BP 195/62
[2017-04-28] MEDS ORDERED: KEPPRA PO ONE (11:48)
[2017-04-28] MEDS ORDERED: LASIX PO ONE (11:49)
[2017-04-28] MEDS ORDERED: COREG PO ONE (11:50)
[2017-04-28] MEDS ORDERED: BABY ASPIRIN PO ONE (11:51)
--- NOTE | 2017-04-28 12:12 | XRay Report ---
Portable chest: Dyspnea. There is a generally coarse overall interstitial pattern throughout both lungs. No infiltrate or nodule identified. The mediastinal and hilar regions are unremarkable. The heart is normal in size and there is no vascular congestion. No significant change compared to prior study of March 03, 2017. Impression: Chronic lung changes. No acute finding.
[2017-04-28] MEDS ORDERED: TIMOPTIC OU ONE (12:30)
== END 2017-04-28 17:23 | disposition home or self-care (01) ==
LOC: ED 15:31
DX: E11.22 Type 2 diabetes mellitus with diabetic chronic kidney disease (principal); I12.0 Hypertensive chronic kidney disease with stage 5 chronic kidney disease or end stage renal disease; N18.6 End stage renal disease; Z99.2 Dependence on renal dialysis; D64.9 Anemia, unspecified; K21.9 Gastro-esophageal reflux disease without esophagitis; J44.9 Chronic obstructive pulmonary disease, unspecified
CPT/HCPCS: 36415; 71010; 80053; 85007; 85025; 86850; 86900; 86901; 99284; A9270

== ENCOUNTER 2017-07-27 10:43 | Emergency (ER) | payer MEDICARE ==
[2017-07-27 13:15] LABS: Calcium 8.5 mg/dL (8.4-10.2)
[2017-07-27] MEDS ORDERED: TYLENOL PO ONE (14:10)
[2017-07-27] MEDS ORDERED: BOOSTRIX IM ONE ×2 (14:10→18:45)
--- NOTE | 2017-07-27 14:24 | XRay Report ---
BILATERAL HIPS WITH PELVIS, 3 VIEWS: History: Hip pain after fall Findings: Mild osteopenia is suspected. There is no evidence for fracture, dislocation or pelvic diastasis. No advanced joint pathology is detected. The soft tissues are unremarkable. Impression: Unremarkable exam. Mild osteopenia.
--- NOTE | 2017-07-27 15:09 | Cat Scan Report ---
CT HEAD WITHOUT CONTRAST: HISTORY: Fall on Coumadin, head injury. TECHNIQUE: Sequential CT images without contrast. FINDINGS: Images obtained show bilateral prominence of the sulci and ventricles. There are no abnormal intra- or extra-axial blood or fluid collections. There are no focal masses or evidence of mass effect. The chaudhary white matter differentiation appears within normal limits. Regions of periventricular decreased attenuation are consistent with microangiopathic ischemic disease. The posterior fossa structures including the fourth ventricle, cerebellum, and brainstem appear normal. IMPRESSION: Evidence of atrophy and microangiopathic ischemic disease. No acute intracranial process noted.
--- NOTE | 2017-07-27 15:47 | Emergency Department Report ---
ED General Adult HPI - General Chief complaint: Fall Stated complaint: FALL/RIGHT FOOT PAIN Time Seen by Provider: 07/27/17 13:54 Source: patient, EMS (ems notes not available at time of chart dictation), RN notes reviewed, old records reviewed Mode of arrival: Ambulatory Limitations: No Limitations - History of Present Illness Initial comments: This is a 71-year-old female whom I have evaluated in the past. Please see my note from 06/06/2017 for the details the past. Patient presents today with a complaint of mechanical fall on Thursday. She denies dizziness, chest pain, shortness of breath, syncope before the fall. She complains of right great toe pain, right knee pain, and rib pain. Her pain is achy, increases with palpation and it decreases with rest. No weakness, numbness, ataxia, shortness of breath, chest pain. She endorses compliance with her dialysis. She indicates that she has dialysis tomorrow. -: Sudden Location: right, lower extremity Quality: aching Consistency: intermittent Improves with: rest Worsens with: movement Associated Symptoms: denies: confusion, chest pain, cough, diaphoresis, headaches, loss of appetite, malaise, nausea/vomiting, shortness of breath, syncope, weakness - Related Data Home Medications Medication Instructions Recorded Confirmed Last Taken Paroxetine HCl [PARoxetine] 40 mg PO DAILY 12/24/15 05/06/17 05/05/17 Lactobacillus Combination No.8 1 each PO DAILY 05/06/17 05/06/17 05/05/17 [Adult Probiotic] Dorzolamide HCl/Timolol Maleat 1 drops OU BID 05/08/17 05/08/17 05/07/17 [Dorzolamide-Timolol Eye Drops] Previous Rx's Medication Instructions Recorded Last Taken Type Amiodarone [Cordarone 200 MG TAB] 200 mg PO QDAY #30 tablet 05/09/17 Unknown Rx Aspirin EC [Aspirin Enteric Coated 81 mg PO QDAY #30 tablet. 05/09/17 Unknown Rx TAB] AtorvaSTATin [Lipitor] 40 mg PO DAILY #30 tablet 05/09/17 Unknown Rx Carvedilol [Coreg] 25 mg PO BID #60 tablet 05/09/17 Unknown Rx Furosemide [Lasix TAB] 40 mg PO DAILY #30 tablet 05/09/17 Unknown Rx Latanoprost 0.005% [Xalatan 0.005%] 1 drop OU QPM #1 bottle 05/09/17 Unknown Rx Levothyroxine [Synthroid] 88 mcg PO QAM #30 tablet 05/09/17 Unknown Rx NIFEdipine XL [Procardia Xl] 60 mg PO Q12HR #60 tablet 05/09/17 Unknown Rx Pantoprazole [Protonix TAB] 40 mg PO QDAY #30 tablet 05/09/17 Unknown Rx Ranitidine HCl [Acid Embalmer/Funeral Director] 150 mg PO BID #60 tablet 05/09/17 Unknown Rx Vit B Comp No.3/Folic/C/Biotin 1 each PO DAILY #30 tablet 05/09/17 Unknown Rx [Chantell-Yana Rx Tablet] cloNIDine [Catapres] 0.2 mg PO Q12HR #60 tablet 05/09/17 Unknown Rx levETIRAcetam [Keppra TAB] 1,500 mg PO BID 30 Days tablet 05/09/17 Unknown Rx Acetaminophen [Tylenol Arthritis] 650 mg PO Q6HR PRN #30 tablet.er 07/27/17 Unknown Rx Allergies Allergy/AdvReac Type Severity Reaction Status Date / Time benazepril HCl [From Lotrel] Allergy Swelling Verified 02/18/16 09:16 diphenhydramine HCl Allergy Swelling Verified 08/11/14 20:39 [From Benadryl] latex AdvReac Swelling Verified 02/18/16 09:15 ED Review of Systems ROS: Stated complaint: FALL/RIGHT FOOT PAIN Other details as noted in HPI ED Past Medical Hx - Past Medical History Previous Medical History?: Yes Hx Hypertension: Yes Hx Heart Attack/AMI: No Hx Diabetes: Yes Hx GERD: Yes Hx Liver Disease: No Hx Renal Disease: Yes Hx Arthritis: Yes Hx Seizures: Yes Hx Asthma: No Hx COPD: Yes Hx Dementia: Yes Hx HIV: No Additional medical history: Paroxysmal atrial fibrillation - Surgical History Past Surgical History?: Yes Additional Surgical History: Hysterectomy, left upper extremity AV shunt, right chest permacath - Social History Smoking Status: Never Smoker Substance Use Type: None - Medications Home Medications: Home Medications Medication Instructions Recorded Confirmed Last Taken Type Paroxetine HCl [PARoxetine] 40 mg PO DAILY 12/24/15 05/06/17 05/05/17 History Lactobacillus Combination No.8 1 each PO DAILY 05/06/17 05/06/17 05/05/17 History [Adult Probiotic] Dorzolamide HCl/Timolol Maleat 1 drops OU BID 05/08/17 05/08/17 05/07/17 History [Dorzolamide-Timolol Eye Drops] Amiodarone [Cordarone 200 MG TAB] 200 mg PO QDAY #30 tablet 05/09/17 Unknown Rx Aspirin EC [Aspirin Enteric Coated 81 mg PO QDAY #30 tablet.dr 05/09/17 Unknown Rx TAB] AtorvaSTATin [Lipitor] 40 mg PO DAILY #30 tablet 05/09/17 Unknown Rx Carvedilol [Coreg] 25 mg PO BID #60 tablet 05/09/17 Unknown Rx Furosemide [Lasix TAB] 40 mg PO DAILY #30 tablet 05/09/17 Unknown Rx Latanoprost 0.005% [Xalatan 0.005%] 1 drop OU QPM #1 bottle 05/09/17 Unknown Rx Levothyroxine [Synthroid] 88 mcg PO QAM #30 tablet 05/09/17 Unknown Rx NIFEdipine XL [Procardia Xl] 60 mg PO Q12HR #60 tablet 05/09/17 Unknown Rx Pantoprazole [Protonix TAB] 40 mg PO QDAY #30 tablet 05/09/17 Unknown Rx Ranitidine HCl [Acid Embalmer/Funeral Director] 150 mg PO BID #60 tablet 05/09/17 Unknown Rx Vit B Comp No.3/Folic/C/Biotin 1 each PO DAILY #30 tablet 05/09/17 Unknown Rx [Chantell-Yana Rx Tablet] cloNIDine [Catapres] 0.2 mg PO Q12HR #60 tablet 05/09/17 Unknown Rx levETIRAcetam [Keppra TAB] 1,500 mg PO BID 30 Days tablet 05/09/17 Unknown Rx Acetaminophen [Tylenol Arthritis] 650 mg PO Q6HR PRN #30 tablet.er 07/27/17 Unknown Rx ED Physical Exam - General Limitations: Physical Limitation General appearance: alert, in no apparent distress - Head Head exam: Present: atraumatic, normocephalic - Eye Eye exam: Present: normal appearance, EOMI. Absent: PERRL (status post bilateral cataract surgery.) - ENT ENT exam: Present: normal exam, normal orophraynx, mucous membranes moist, TM's normal bilaterally, normal external ear exam - Neck Neck exam: Present: normal inspection, full ROM. Absent: tenderness, meningismus - Respiratory Respiratory exam: Present: normal lung sounds bilaterally. Absent: respiratory distress, wheezes, rales, rhonchi, stridor, chest wall tenderness - Cardiovascular Cardiovascular Exam: Present: regular rate, normal rhythm, normal heart sounds. Absent: bradycardia, tachycardia, irregular rhythm, systolic murmur, diastolic murmur, rubs, gallop - GI/Abdominal GI/Abdominal exam: Present: soft, normal bowel sounds. Absent: distended, tenderness, guarding, rebound, rigid, pulsatile mass - Extremities Exam Extremities exam: Present: full ROM, tenderness (there is no chest wall tenderness. The pelvis is stable. There is no femur tenderness. There is no upper extremity long bony tenderness. The right great toe is tender. The right great toe is ecchymotic. The left knee is nontender and has full active and passive range of motion. Bilateral ankles are nontender. There is no tenderness at the base of the fifth metatarsal, there is no foot tenderness whatsoever, with the exception of right great toe tenderness.), normal capillary refill, other (the right knee is tender laterally. There is right anterior/lateral knee ecchymosis.). Absent: pedal edema, joint swelling, calf tenderness - Back Exam Back exam: Present: normal inspection, full ROM. Absent: paraspinal tenderness , vertebral tenderness - Neurological Exam Neurological exam: Present: alert, oriented X3, CN II-XII intact, normal gait, other (Extraocular movements intact. Tongue midline. No facial droop. Facial sensation intact to light touch in the V1, V2, V3 distribution bilaterally. 5 and 5 strength in 4 extremities.. Sensation is intact to light touch in 4 extremities.). Absent: motor sensory deficit - Psychiatric Psychiatric exam: Present: normal affect, normal mood - Skin Skin exam: Present: warm, ecchymosis ED Course Vital Signs 07/27/17 07/27/17 14:30 15:54 Temperature 98.2 F Pulse Rate 63 Respiratory 18 18 Rate Blood Pressure 185/65 [Right] O2 Sat by Pulse 99 99 Oximetry - Reevaluation(s) Reevaluation #1: 07/27/17 19:19 Patient reports receiving a tetanus vaccination 2 weeks ago. ED Medical Decision Making - Lab Data Result diagrams: 07/27/17 12:40 Vital Signs 07/27/17 07/27/17 14:30 15:54 Temperature 98.2 F Pulse Rate 63 Respiratory 18 18 Rate Blood Pressure 185/65 [Right] O2 Sat by Pulse 99 99 Oximetry Lab Results 07/27/17 Range/Units 12:40 Sodium 142 (137-145) mmol/L Potassium 4.7 (3.6-5.0) mmol/L Chloride 95.6 L (98-107) mmol/L Carbon Dioxide 18 L (22-30) mmol/L Anion Gap 33 mmol/L BUN 78 H (7-17) mg/dL Creatinine 9.1 H (0.7-1.2) mg/dL Estimated GFR 4 ml/min BUN/Creatinine Ratio 9 % Glucose 116 H (65-100) mg/dL Calcium 8.5 (8.4-10.2) mg/dL - Radiology Data Radiology results: report reviewed, image reviewed CT scan of the brain, interpreted by radiology: No acute disease X-ray of the chest: No acute disease X-ray the hips, no acute disease X-ray of the foot, demonstrates degenerative disease, acute fracture of the proximal phalanx of the first toe. X-ray of the right knee demonstrates a nondisplaced proximal fibular fracture. - Medical Decision Making Differential diagnosis, including but not limited to: Fracture, dislocation, sprain, strain, intracranial injury, hyperkalemia Assessment and plan: 71-year-old female status post mechanical falls. Injuries include right great toe fracture of the proximal first phalanx, and a nondisplaced right proximal fibular fracture. Patient is afebrile with reassuring vital signs with the exception of hypertension, her laboratory studies demonstrated normal potassium, and she is going to follow up for dialysis tomorrow. Patient observed in the ER for a prolonged period of time without clinical decompensation, her right great toe will be placed in cristopher tape, and she will have right lower extremity Splint placed she will be made nonweightbearing, and she should follow up with outpatient orthopedics. Critical care attestation.: If time is entered above; I have spent that time in minutes in the direct care of this critically ill patient, excluding procedure time. ED Disposition Clinical Impression: Fracture of right great toe, Fracture of right proximal fibula, End stage renal disease on dialysis Disposition: TO HOME OR SELFCARE Is pt being admited?: No Does the pt Need Aspirin: No Condition: Good Instructions: Chronic Kidney Disease (ED) Additional Instructions: Rest and avoid heavy lifting, and avoid strenuous physical activities. Keep the splint in place on the right lower extremity, use the crutches as directed. Follow-up with the orthopedic surgeon, Dr. Bone for the right great toe fracture, and right lower extremity fibular fracture within the next 7-10 days. Please continue outpatient blood pressure medication, and please understand the long-term complications of hypertension and elevated blood pressure include stroke, heart attack, disability, , paralysis, loss of quality of life. Therefore, it is very important to follow-up with your primary care doctor or kidney doctor within the next 7 days for your elevated blood pressure. Take the pain medication as directed, rest, avoid heavy lifting, and apply ice packs to the affected areas that are painful. Return to the ER right away with new pain, worsened pain, migration of pain, fevers, chills, lethargy, irritability, projectile vomiting, change in mental status, confusion, inability to tolerate liquid feeds. Referrals: ESTUARDO ALVARADO MD [Primary Care Provider] - 3-5 Days ISABEL SHAW MD [Staff Physician] - 3-5 Days JOE BONE MD [Staff Physician] - 3-5 Days
--- NOTE | 2017-07-27 16:47 | XRay Report ---
FINAL REPORT EXAM: XR KNEE 1-2V RT HISTORY: rt knee pain fall TECHNIQUE: Right knee two views PRIORS: None. FINDINGS: There is tricompartmental joint space narrowing. Meniscal calcifications seen medial and lateral menisci There is cortical disruption the proximal fibula base of the fibular head without displacement. There is no evidence for joint effusion. 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
[2017-07-27] MEDS ORDERED: TYLENOL ONE (17:05)
--- NOTE | 2017-07-27 17:13 | XRay Report ---
FINAL REPORT EXAM: XR CHEST ROUTINE 2V HISTORY: fall TECHNIQUE: Two view chest PA and lateral PRIORS: None. FINDINGS: Cardiac and mediastinal contours are unremarkable. No focal pulmonary infiltrate is identified. No pleural fluid collection seen. Pulmonary vasculature is unremarkable. IMPRESSION: Negative two-view chest
--- NOTE | 2017-07-27 17:17 | XRay Report ---
FINAL REPORT EXAM: XR FOOT 3+V RT HISTORY: fall TECHNIQUE: Right foot three views PRIORS: None. FINDINGS: There is acute comminuted minimally displaced fracture the proximal phalanx 1st toe extending to the articular surface. There is some degenerative narrowing at the 1st metatarsophalangeal joint with mild subluxation likely due to degenerative change. No additional acute skeletal findings identified. Skeletal structures are osteopenic. IMPRESSION: Acute fracture proximal phalanx of the 1st toe Degenerative changes at the 1st metatarsal-phalangeal joint Osteopenia
[2017-07-27] MEDS ORDERED: ULTRAM PO ONE (19:50)
[2017-07-27] MEDS: TYLENOL PO ONE ×2 (19:54→19:55)
[2017-07-28 01:47] VITALS: BP 169/51
== END 2017-07-27 22:52 | disposition home or self-care (01) ==
LOC: ED 10:43
DX: S92.411A Displaced fracture of proximal phalanx of right great toe, initial encounter for closed fracture (principal); S82.831A Other fracture of upper and lower end of right fibula, initial encounter for closed fracture; E11.22 Type 2 diabetes mellitus with diabetic chronic kidney disease; I13.11 Hypertensive heart and chronic kidney disease without heart failure, with stage 5 chronic kidney disease, or end stage renal disease; N18.6 End stage renal disease; R07.81 Pleurodynia; I48.0 Paroxysmal atrial fibrillation; K21.9 Gastro-esophageal reflux disease without esophagitis; M19.90 Unspecified osteoarthritis, unspecified site; J44.9 Chronic obstructive pulmonary disease, unspecified; F03.90 Unspecified dementia, unspecified severity, without behavioral disturbance, psychotic disturbance, mood disturbance, and anxiety; Z90.710 Acquired absence of both cervix and uterus; Z99.2 Dependence on renal dialysis; Z98.42 Cataract extraction status, left eye; Z98.41 Cataract extraction status, right eye; Z88.8 Allergy status to other drugs, medicaments and biological substances; Z91.040 Latex allergy status; W19.XXXA Unspecified fall, initial encounter; Y93.89 Activity, other specified; Y99.8 Other external cause status; Y92.89 Other specified places as the place of occurrence of the external cause
CPT/HCPCS: 36415; 70450; 71046; 73521; 80048

== ENCOUNTER 2017-07-28 12:23 | Emergency (ER) | payer MEDICARE ==
--- NOTE | 2017-07-28 13:39 | Emergency Department Report ---
ED General Adult HPI - General Chief complaint: Vaginal Bleeding Stated complaint: VAGINAL BLEEDING Time Seen by Provider: 07/28/17 13:36 Source: patient, EMS (ems notes not available at time of chart dictation), RN notes reviewed, old records reviewed Mode of arrival: Stretcher Limitations: No Limitations - History of Present Illness Initial comments: This is a 71-year-old female whom I have evaluated multiple times. Please see my note from yesterday for the full details of the patient's history, physical, past medical conditions. Patient presents to the ER today with a complaint of vaginal bleeding. It is painless. It does not radiate anywhere. He does not have exacerbating or relieving factors. Denies headache, neck pain, chest pain , abdominal pain and soreness of breath. Still having right knee pain from yesterday, and right great toe pain. -: Gradual Consistency: constant Improves with: none Associated Symptoms: denies: confusion, chest pain, cough, diaphoresis, fever/ chills, headaches, loss of appetite, malaise, nausea/vomiting, shortness of breath, syncope, weakness - Related Data Home Medications Medication Instructions Recorded Confirmed Last Taken Paroxetine HCl [PARoxetine] 40 mg PO DAILY 12/24/15 05/06/17 05/05/17 Lactobacillus Combination No.8 1 each PO DAILY 05/06/17 05/06/17 05/05/17 [Adult Probiotic] Dorzolamide HCl/Timolol Maleat 1 drops OU BID 05/08/17 05/08/17 05/07/17 [Dorzolamide-Timolol Eye Drops] Previous Rx's Medication Instructions Recorded Last Taken Type Amiodarone [Cordarone 200 MG TAB] 200 mg PO QDAY #30 tablet 05/09/17 Unknown Rx Aspirin EC [Aspirin Enteric Coated 81 mg PO QDAY #30 tablet.dr 05/09/17 Unknown Rx TAB] AtorvaSTATin [Lipitor] 40 mg PO DAILY #30 tablet 05/09/17 Unknown Rx Carvedilol [Coreg] 25 mg PO BID #60 tablet 05/09/17 Unknown Rx Furosemide [Lasix TAB] 40 mg PO DAILY #30 tablet 05/09/17 Unknown Rx Latanoprost 0.005% [Xalatan 0.005%] 1 drop OU QPM #1 bottle 05/09/17 Unknown Rx Levothyroxine [Synthroid] 88 mcg PO QAM #30 tablet 05/09/17 Unknown Rx NIFEdipine XL [Procardia Xl] 60 mg PO Q12HR #60 tablet 05/09/17 Unknown Rx Pantoprazole [Protonix TAB] 40 mg PO QDAY #30 tablet 05/09/17 Unknown Rx Ranitidine HCl [Acid Line Therapist] 150 mg PO BID #60 tablet 05/09/17 Unknown Rx Vit B Comp No.3/Folic/C/Biotin 1 each PO DAILY #30 tablet 05/09/17 Unknown Rx [Chantell-Yana Rx Tablet] cloNIDine [Catapres] 0.2 mg PO Q12HR #60 tablet 05/09/17 Unknown Rx levETIRAcetam [Keppra TAB] 1,500 mg PO BID 30 Days tablet 05/09/17 Unknown Rx Acetaminophen [Tylenol Arthritis] 650 mg PO Q6HR PRN #30 tablet.er 07/27/17 Unknown Rx Nitrofurantoin Morrison/M-Cryst 100 mg PO Q12HR #13 capsule 07/28/17 Unknown Rx [Macrobid CAP] Allergies Allergy/AdvReac Type Severity Reaction Status Date / Time benazepril HCl [From Lotrel] Allergy Swelling Verified 02/18/16 09:16 diphenhydramine HCl Allergy Swelling Verified 08/11/14 20:39 [From Benadryl] latex AdvReac Swelling Verified 02/18/16 09:15 ED Review of Systems ROS: Stated complaint: VAGINAL BLEEDING Other details as noted in HPI ED Past Medical Hx - Past Medical History Previous Medical History?: Yes Hx Hypertension: Yes Hx Heart Attack/AMI: No Hx Diabetes: Yes Hx GERD: Yes Hx Liver Disease: No Hx Renal Disease: Yes Hx Arthritis: Yes Hx Seizures: Yes Hx Asthma: No Hx COPD: Yes Hx Dementia: Yes Hx HIV: No Additional medical history: Paroxysmal atrial fibrillation - Surgical History Additional Surgical History: Hysterectomy, left upper extremity AV shunt, right chest permacath - Social History Smoking Status: Never Smoker Substance Use Type: None - Medications Home Medications: Home Medications Medication Instructions Recorded Confirmed Last Taken Type Paroxetine HCl [PARoxetine] 40 mg PO DAILY 12/24/15 05/06/17 05/05/17 History Lactobacillus Combination No.8 1 each PO DAILY 05/06/17 05/06/17 05/05/17 History [Adult Probiotic] Dorzolamide HCl/Timolol Maleat 1 drops OU BID 05/08/17 05/08/17 05/07/17 History [Dorzolamide-Timolol Eye Drops] Amiodarone [Cordarone 200 MG TAB] 200 mg PO QDAY #30 tablet 05/09/17 Unknown Rx Aspirin EC [Aspirin Enteric Coated 81 mg PO QDAY #30 tablet.dr 05/09/17 Unknown Rx TAB] AtorvaSTATin [Lipitor] 40 mg PO DAILY #30 tablet 05/09/17 Unknown Rx Carvedilol [Coreg] 25 mg PO BID #60 tablet 05/09/17 Unknown Rx Furosemide [Lasix TAB] 40 mg PO DAILY #30 tablet 05/09/17 Unknown Rx Latanoprost 0.005% [Xalatan 0.005%] 1 drop OU QPM #1 bottle 05/09/17 Unknown Rx Levothyroxine [Synthroid] 88 mcg PO QAM #30 tablet 05/09/17 Unknown Rx NIFEdipine XL [Procardia Xl] 60 mg PO Q12HR #60 tablet 05/09/17 Unknown Rx Pantoprazole [Protonix TAB] 40 mg PO QDAY #30 tablet 05/09/17 Unknown Rx Ranitidine HCl [Acid Line Therapist] 150 mg PO BID #60 tablet 05/09/17 Unknown Rx Vit B Comp No.3/Folic/C/Biotin 1 each PO DAILY #30 tablet 05/09/17 Unknown Rx [Chantell-Yana Rx Tablet] cloNIDine [Catapres] 0.2 mg PO Q12HR #60 tablet 05/09/17 Unknown Rx levETIRAcetam [Keppra TAB] 1,500 mg PO BID 30 Days tablet 05/09/17 Unknown Rx Acetaminophen [Tylenol Arthritis] 650 mg PO Q6HR PRN #30 tablet.er 07/27/17 Unknown Rx Nitrofurantoin Morrison/M-Cryst 100 mg PO Q12HR #13 capsule 07/28/17 Unknown Rx [Macrobid CAP] ED Physical Exam - General Limitations: No Limitations General appearance: alert, in no apparent distress - Head Head exam: Present: atraumatic, normocephalic - Eye Eye exam: Present: normal appearance, EOMI. Absent: nystagmus - ENT ENT exam: Present: normal exam, normal orophraynx, mucous membranes moist, normal external ear exam - Neck Neck exam: Present: normal inspection, full ROM - Respiratory Respiratory exam: Present: normal lung sounds bilaterally. Absent: respiratory distress - Cardiovascular Cardiovascular Exam: Present: regular rate, normal rhythm, normal heart sounds. Absent: bradycardia, tachycardia, irregular rhythm, systolic murmur, diastolic murmur, rubs, gallop - GI/Abdominal GI/Abdominal exam: Present: soft, normal bowel sounds. Absent: distended, tenderness, guarding, rebound, rigid, pulsatile mass - External exam: Present: normal external exam, other (escorted by nursing ro march) Speculum exam: Absent: vaginal bleeding - Extremities Exam Extremities exam: Present: normal inspection, tenderness (right great toe is tender. Splints noted to the right lower extremity applied yesterday. Right lateral knee is tender. Compartments are soft.), normal capillary refill. Absent: pedal edema, joint swelling, calf tenderness - Back Exam Back exam: Present: normal inspection, full ROM. Absent: paraspinal tenderness , vertebral tenderness - Neurological Exam Neurological exam: Present: alert, CN II-XII intact, other (Extraocular movements intact. Tongue midline. No facial droop. Facial sensation intact to light touch in the V1, V2, V3 distribution bilaterally. 5 and 5 strength in 4 extremities.. Sensation is intact to light touch in 4 extremities.). Absent : motor sensory deficit - Psychiatric Psychiatric exam: Present: normal affect, normal mood - Skin Skin exam: Present: warm, dry, intact, normal color. Absent: rash ED Course Vital Signs 07/28/17 07/28/17 07/28/17 12:58 13:45 13:55 Temperature 98.3 F Pulse Rate 82 80 Respiratory 16 16 Rate Blood Pressure 220/66 151/56 O2 Sat by Pulse 99 94 Oximetry - Reevaluation(s) Reevaluation #1: 07/28/17 15:52 Total evidence of rectal bleeding on direct examination, hemoglobin and hematocrit are reviewed, and appeared to be at baseline and even higher than baseline. ED Medical Decision Making - Lab Data Result diagrams: 07/28/17 14:04 07/28/17 14:04 Vital Signs 07/28/17 07/28/17 07/28/17 12:58 13:45 13:55 Temperature 98.3 F Pulse Rate 82 80 Respiratory 16 16 Rate Blood Pressure 220/66 151/56 O2 Sat by Pulse 99 94 Oximetry Labs 07/28/17 07/28/17 07/28/17 13:56 14:04 14:04 WBC 7.8 RBC 3.09 L Hgb 9.5 L Hct 30.0 L MCV 97 MCH 31 MCHC 32 RDW 16.7 H Plt Count 133 L Lymph % (Auto) 5.2 L Morrison % (Auto) 7.1 Eos % (Auto) 0.0 Baso % (Auto) 0.1 Lymph # 0.4 L Morrison # 0.5 Eos # 0.0 Baso # 0.0 Seg Neutrophils % 87.6 H Seg Neutrophils # 6.8 PT INR Sodium Potassium Chloride Carbon Dioxide Anion Gap BUN Creatinine Estimated GFR BUN/Creatinine Ratio Glucose Calcium Urine Color Noemi Urine Turbidity Clear Urine pH 7.0 Ur Specific [place] 1.020 Urine Protein 100 mg/dl Urine Glucose (UA) Neg Urine Ketones Tr Urine Blood Lg Urine Nitrite Neg Urine Bilirubin Neg Urine Urobilinogen < 2.0 Ur Leukocyte Esterase Sm Urine WBC (Auto) > 182.0 H Urine RBC (Auto) > 182.0 U Epithel Cells (Auto) 9.0 Urine Bacteria (Auto) 3+ Blood Type O POSITIVE Antibody Screen Positive Direct Antiglob Test Negative OWEN, Poly Interpret Negative 07/28/17 07/28/17 14:04 14:04 WBC RBC Hgb Hct MCV MCH MCHC RDW Plt Count Lymph % (Auto) Morrison % (Auto) Eos % (Auto) Baso % (Auto) Lymph # Morrison # Eos # Baso # Seg Neutrophils % Seg Neutrophils # PT 14.4 INR 1.06 Sodium 137 Potassium 5.7 H D Chloride 92.9 L Carbon Dioxide 13 L Anion Gap 37 BUN 91 H Creatinine 10.3 H Estimated GFR 4 BUN/Creatinine Ratio 9 Glucose 115 H Calcium 9.1 Urine Color Urine Turbidity Urine pH Ur Specific [place] Urine Protein Urine Glucose (UA) Urine Ketones Urine Blood Urine Nitrite Urine Bilirubin Urine Urobilinogen Ur Leukocyte Esterase Urine WBC (Auto) Urine RBC (Auto) U Epithel Cells (Auto) Urine Bacteria (Auto) Blood Type Antibody Screen Direct Antiglob Test OWEN, Poly Interpret - Medical Decision Making Differential diagnosis, including but not limited to: Urinary tract infection, vaginal bleeding, incidental hyperkalemia Assessment and plan: 71-year-old female today with a complaint of painless vaginal bleeding. On my direct examination I do not appreciate any bleeding. Her urinalysis does suggest urinary tract infection. The laboratory studies are reviewed and she is found to be hyperkalemic with potassium of 5.7. Blood pressure in the 150s. I have contacted her private accounting manager, and discussed the case with the nephrology nurse practitioner, Jenifer. She recommends the grams of Kayexalate, and indicates the patient has been set up for dialysis tomorrow. She further indicates that she has dictation has also been set up for the patient to pick her up from where she lives tomorrow. Patient will be discharged at this time, return precautions are reviewed. Critical care attestation.: If time is entered above; I have spent that time in minutes in the direct care of this critically ill patient, excluding procedure time. ED Disposition Clinical Impression: UTI (lower urinary tract infection), End stage renal disease on dialysis Disposition: DC- TO HOME OR SELFCARE Is pt being admited?: No Does the pt Need Aspirin: No Condition: Stable Instructions: Chronic Kidney Disease (ED) Additional Instructions: Continue current outpatient medications. Take the antibiotics as directed. Cultures was sent today, results will be available in the next 3-5 days. Have her primary care doctor or kidney doctor contact the medical records department to obtain culture results. Take antibiotics as directed. Your private accounting manager has arranged for dialysis tomorrow, at your typical dialysis facility, at 2:30 PM. In addition, a accounting manager has arranged for transportation to PICU up from a home tomorrow for dialysis, to arrive at 2:30 PM. Therefore, please expect to be picked up tomorrow for your dialysis. Please return to the ER right away with fevers, chills, lethargy, irritability, projectile vomiting, change in mental status, confusion, inability to tolerate liquid feeds. Referrals: PRIMARY MD MARKY [Primary Care Provider] - 3-5 Days ISABEL SHAW MD [Staff Physician] - 3-5 Days
[2017-07-28 14:12] LABS: Bacteria,Urine 3+ /HPF (Negative); Bilirubin,Urine NEG (Negative); Blood,Urine LG (Negative); Nitrite,Urine NEG (Negative); Urobilinogen,Urine < 2.0 mg/dL (<2.0)
[2017-07-28 14:13] LABS: RBC,Urine > 182.0 /HPF (0.0-6.0)
[2017-07-28 14:14] LABS: WBC,Urine > 182.0 /HPF (0.0-6.0)
[2017-07-28 14:26] LABS: Color,Urine Amber (Yellow)
[2017-07-28 14:30] LABS: Basophils % (Auto) 0.1 % (0.0-1.8); Hemoglobin 9.5 gm/dl (10.1-14.3); Lymphocytes # (Auto) 0.4 K/mm3 (1.2-5.4); Lymphocytes % (Auto) 5.2 % (13.4-35.0); Mean Corpuscular HGB Conc 32 % (30-34); Mean Corpuscular Hemoglobin 31 pg (28-32); Mean Corpuscular Volume 97 fl (79-97); Monocytes # (Auto) 0.5 K/mm3 (0.0-0.8); Monocytes % (Auto) 7.1 % (0.0-7.3); Platelet Count 133 K/mm3 (140-440); Red Blood Count 3.09 M/mm3 (3.65-5.03); Red Cell Distribution Width 16.7 % (13.2-15.2)
[2017-07-28 14:40] LABS: Calcium 9.1 mg/dL (8.4-10.2)
[2017-07-28 14:41] LABS: INR 1.06 (0.87-1.13)
[2017-07-28] MEDS ORDERED: MACROBID PO ONE (15:44)
[2017-07-28] MEDS ORDERED: KIONEX PO ONE (15:44)
[2017-07-28 20:35] VITALS: BP 134/80
== END 2017-07-28 20:35 | disposition home or self-care (01) ==
LOC: ED 12:23
DX: N39.0 Urinary tract infection, site not specified (principal); K21.9 Gastro-esophageal reflux disease without esophagitis; M19.90 Unspecified osteoarthritis, unspecified site; J44.9 Chronic obstructive pulmonary disease, unspecified; I12.0 Hypertensive chronic kidney disease with stage 5 chronic kidney disease or end stage renal disease; E11.22 Type 2 diabetes mellitus with diabetic chronic kidney disease; N18.6 End stage renal disease; Z99.2 Dependence on renal dialysis; Z79.82 Long term (current) use of aspirin; Z88.8 Allergy status to other drugs, medicaments and biological substances; Z91.040 Latex allergy status
CPT/HCPCS: 36415; 80048; 81001; 85025; 85610; 86850; 86870; 86880; 86900; 86901; 99283